=== PATIENT | female | born 1950 | race African-American/Black ===

== ENCOUNTER → 2017-06-22 | Outpatient (CLI) | payer MEDICAID ==
[~2017-06-22] MED LIST: ACET-2178; ASPI-986; BACL-141; DIVA250T4; GLIP10TA3; LIDOCAINE 1%/EPI 1:200,000 10 ML VIAL IJ ONE; LISI-604; MOM; RISP2; SODIUM BICARBONATE 4% (2.4MEQ) 5ML VIAL IV ONE; VALS160T2
== END | disposition home or self-care (01) ==
LOC: MAMMO 10:23
PROVIDERS: ATTEND Internal Medicine
DX: N63.10 Unspecified lump in the right breast, unspecified quadrant (principal)
CPT/HCPCS: G0204

== ENCOUNTER → 2017-07-18 | Day surgery (SDC) | payer MEDICAID ==
[~2017-07-18] MED LIST changes: -LIDOCAINE 1%/EPI 1:200,000 10 ML VIAL IJ ONE; -SODIUM BICARBONATE 4% (2.4MEQ) 5ML VIAL IV ONE
== END | disposition home or self-care (01) ==
LOC: RAD 09:31
PROVIDERS: ATTEND Specialist
DX: C50.411 Malignant neoplasm of upper-outer quadrant of right female breast (principal)
CPT/HCPCS: 19083; 88305; J3490

== ENCOUNTER → 2017-11-05 | Outpatient (CLI) | payer MEDICAID ==
[~2017-11-05] MED LIST changes: +REGADENOSON 0.4 MG/5 ML IV ONE
== END | disposition home or self-care (01) ==
LOC: NM 08:09
PROVIDERS: ATTEND Internal Medicine Cardiovascular Disease
DX: Z01.818 Encounter for other preprocedural examination (principal); I10 Essential (primary) hypertension; R94.31 Abnormal electrocardiogram [ECG] [EKG]
CPT/HCPCS: 78452; 93017; A9500; C1893; J2785

== ENCOUNTER 2018-02-06 13:56 | Inpatient (IN) | payer MEDICAID ==
[2018-02-06] VITALS (7 sets, daily range): BP systolic 120–158; BP diastolic 47–89
[~2018-02-06] VITALS: Ht 165.1 cm; Wt 75.3 kg
[~2018-02-06 13:56] MED LIST changes: -REGADENOSON 0.4 MG/5 ML IV ONE
[2018-02-06] MEDS ORDERED: SUCCINYLCHOLINE CHLORIDE 200MG/10ML VIAL IV ONE ×2 (14:30)
[2018-02-06] MEDS ORDERED: NORMAL SALINE 0.9% 10 ML SYR ONE (14:30)
[2018-02-06] MEDS ORDERED: SODIUM CHLORIDE 0.9% 1000ML BAG (SEPSIS BOLUS) IV ONE (14:30)
[2018-02-06] MEDS ORDERED: ETOMIDATE 2MG/ML 10ML VIAL IV ONE ×2 (14:30)
[2018-02-06] MEDS ORDERED: PROPOFOL 10MG/ML 100ML 100 ML IV ONE (14:30)
[2018-02-06 15:30] LABS: CLARITY URINE TURBID (CLEAR); COLOR URINE YELLOW (YELLOW); KETONES URINE TRACE (NEGATIVE); LEUKOCYTE ESTERASE URINE 3+ (NEGATIVE); NITRITE URINE NEGATIVE (NEGATIVE); OCCULT BLOOD URINE 1+ (NEGATIVE); PH URINE 7.5 (4.5-8.0); PROTEIN URINE 3+ (NEGATIVE); SPECIFIC GRAVITY URINE 1.017 (1.005-1.030)
[2018-02-06 15:46] LABS: BG BASE EXCESS -19.3 mmol/L (-2.0-2.0); BG CARBOXYHEMOGLOBIN 0.3 % (0.5-1.5); BG DEOXYHEMOGLOBIN 0.6 % (0.0-5.0); BG FRACTION INSPIRED OXYGEN 100; BG HCO3 ACT 7.8 mmol/L (22.0-26.0); BG METHEMOGLOBIN 0.3 % (0.0-1.5); BG OXYGEN SATURATION 99.4 % (92.0-98.5); BG OXYHEMOGLOBIN 98.8 % (94.0-97.0); BG PCO2 22.8 mmHg (35.0-45.0); BG PH 7.152 (7.350-7.450); BG PO2 473.8 mmHg (75.0-100.0); BG SAMPLE SITE RIGHT RADIAL; BG TIDAL VOLUME(mL) 600 mL; BG TOTAL HEMOGLOBIN 8.3 g/dL (12.0-18.0); BG VENT MODE VENT - A/C; BG VENT RATE 12 set
[2018-02-06 15:50] LABS: CHLORIDE 128 mEq/L (98-107)
[2018-02-06 15:51] LABS: INR 1.2; PARTIAL THROMBOPLASTIN TIME 33.2 sec (23.4-31.0); PROTHROMBIN TIME 12.8 sec (9.4-11.6)
[2018-02-06 15:52] LABS: HEMOGLOBIN. 8.7 g/dL (12.0-16.0); MEAN CORPUSCULAR HEMOGLOBIN 30.6 pg (28.0-32.0); MEAN CORPUSCULAR VOLUME 98.5 fL (81.0-99.0); MEAN PLATELET VOLUME 8.7 fl (7.4-10.4); PLATELET 185 x1000/uL (130-400); RED BLOOD CELL COUNT 2.84 mill/uL (4.2-5.4); RED CELL DISTRIBUTION WIDTH 19.8 % (11.6-14.6)
[2018-02-06 15:54] LABS: AMMONIA 23 uMol/L (<32)
[2018-02-06 15:55] LABS: ETHANOL BLOOD < 10 mg/dL
[2018-02-06] MEDS ORDERED: FUROSEMIDE 100MG/10ML VIAL IV STA (15:58)
[2018-02-06 15:59] LABS: CANNABINOID URINE SCREEN NEGATIVE (NEGATIVE); METHADONE URINE SCREEN NEGATIVE (NEGATIVE); OPIATES URINE SCREEN NEGATIVE (NEGATIVE); PHENCYCLIDINE URINE SCREEN NEGATIVE (NEGATIVE)
[2018-02-06 16:00] LABS: *AMPHETAMINES SCREEN URINE NEGATIVE (NEGATIVE); *BARBITURATES SCREEN URINE NEGATIVE (NEGATIVE); *BENZODIAZEPINES SCREEN URINE NEGATIVE (NEGATIVE); *COCAINE SCREEN URINE NEGATIVE (NEGATIVE)
[2018-02-06] MEDS ORDERED: ALBUTEROL (0.083%) 2.5MG/3ML NEB HHN ONE (16:00)
[2018-02-06] MEDS ORDERED: CALCIUM GLUCONATE 100MG/ML 10ML VIAL IV ONE (16:00)
[2018-02-06] MEDS ORDERED: SODIUM POLYSTYRENE SULFONATE 15 G/60 ML BOT NG ONE (16:00)
[2018-02-06] MEDS ORDERED: SODIUM BICARBONATE 8.4% 1 MEQ/ML 50ML SYR IV ONE ×2 (16:00→19:00)
[2018-02-06] MEDS ORDERED: DEXTROSE 50% WATER 50ML SYRINGE IV ONE ×3 (16:00→22:25)
[2018-02-06] MEDS ORDERED: INSULIN REGULAR (HUMULIN R) 300UNITS/3ML IV ONE ×2 (16:00→19:00)
[2018-02-06 16:26] LABS: NUCLEATED RED BLOOD CELLS 18 /100 WBC; PLATELET ESTIMATE NORMAL
[2018-02-06] MEDS ORDERED: PIPERACILLIN/TAZ 3.375G PREMIX 50 ML IV ONE (16:45)
[2018-02-06] MEDS ORDERED: VANCOMYCIN 1 G PREMIX 200 ML IV SCH (16:45)
[2018-02-06] MEDS ORDERED: VALPROATE SODIUM 500 MG in SODIUM CHLORIDE 0.9% 100 ML IV SCH (17:00)
[2018-02-06] MEDS ORDERED: LEVOFLOXACIN 500MG PREMIX 100 ML IV SCH (17:30)
[2018-02-06] MEDS ORDERED: ENOXAPARIN 40MG/0.4ML SYR SUBCUT SCH (17:30)
[2018-02-06] MEDS ORDERED: ASPIRIN 300MG SUPP PR ONE (17:45)
[2018-02-06 20:50] LABS: PHOSPHORUS 7.7 mg/dL (2.5-4.9)
[2018-02-06] MEDS ORDERED: ONDANSETRON HCL 4MG/2ML VIAL IV PRN (21:43)
[2018-02-06] MEDS ORDERED: DEXT 5%/0.45% NACL 1000ML 1,000 ML IV SCH (21:43)
[2018-02-06] MEDS ORDERED: HYDROCODONE/ACETAMINOPHEN 5/325MG TABLET PO PRN (21:44)
[2018-02-06] MEDS ORDERED: MAGNESIUM/ALUMINUM HYDROXIDE/SIMETHICONE 30ML UDC PO PRN (21:44)
[2018-02-06] MEDS ORDERED: NA PHOS,M-B/NA PHOS,DI-BA ENEMA 118ML PR PRN (21:45)
[2018-02-06] MEDS ORDERED: CLONIDINE 0.1MG TABLET PO PRN (21:45)
[2018-02-06] MEDS ORDERED: LORAZEPAM 2MG/ML CPJ IV PRN (21:46)
[2018-02-06] MEDS ORDERED: IPRATROPIUM/ALBUTEROL 0.5-3(2.5)MG/3ML NEB INH PRN (21:49)
[2018-02-06] MEDS ORDERED: ENOXAPARIN 30MG/0.3ML SYR SUBCUT SCH (22:00)
[2018-02-06 22:27] LABS: BG BASE EXCESS -15.6 mmol/L (-2.0-2.0); BG CARBOXYHEMOGLOBIN 0.3 % (0.5-1.5); BG DEOXYHEMOGLOBIN 1.1 % (0.0-5.0); BG FRACTION INSPIRED OXYGEN 40; BG HCO3 ACT 9.5 mmol/L (22.0-26.0); BG METHEMOGLOBIN 0.3 % (0.0-1.5); BG OXYGEN SATURATION 98.9 % (92.0-98.5); BG OXYHEMOGLOBIN 98.3 % (94.0-97.0); BG PCO2 20.7 mmHg (35.0-45.0); BG PH 7.279 (7.350-7.450); BG PO2 176.1 mmHg (75.0-100.0); BG SAMPLE SITE LEFT RADIAL; BG TIDAL VOLUME(mL) 600 mL; BG TOTAL HEMOGLOBIN 8.4 g/dL (12.0-18.0); BG VENT MODE VENT - A/C; BG VENT RATE 12 set
[2018-02-06] MEDS ORDERED: SODIUM BICARBONATE 8.4% 1 MEQ/ML 50ML SYR IV NR (23:45)
[2018-02-06] MEDS ORDERED: MANNITOL 12.5G (25%) VIAL 50ML IV NR (23:59)
[2018-02-07] VITALS (91 sets, daily range): BP systolic 85–163; BP diastolic 39–106
[2018-02-07] MEDS ORDERED: LEVOFLOXACIN 500MG PREMIX 100 ML IV SCH
[2018-02-07 00:15] LABS: CREATINE KINASE MB FRACTION 19.8 ng/mL (0.5-3.6)
[2018-02-07] MEDS: IPRATROPIUM/ALBUTEROL 0.5-3(2.5)MG/3ML NEB HHN SCH ×6 (00:35→19:56)
[2018-02-07] MEDS ORDERED: MANNITOL 12.5G (25%) VIAL 50ML IV NR (01:00)
[2018-02-07] MEDS: DEXTROSE 5% WATER 1,000 ML IV SCH ×3 (01:14→22:16)
[2018-02-07] MEDS: PROPOFOL 10MG/ML 100ML 100 ML IV PRN ×2 (04:25→15:07)
[2018-02-07 07:14] LABS: CHLORIDE 114 mEq/L (98-107)
[2018-02-07 07:26] LABS: CREATINE KINASE 273 IU/L (26-192); CREATINE KINASE MB FRACTION 16.2 ng/mL (0.5-3.6); LDL CHOLESTEROL 92 mg/dL (5-100); T4 FREE 0.71 ng/dL (0.76-1.46)
[2018-02-07 07:29] LABS: PHOSPHORUS 3.5 mg/dL (2.5-4.9)
[2018-02-07 07:32] LABS: HDL CHOLESTEROL 36 mg/dL (40-59)
[2018-02-07 07:45] LABS: BG CARBOXYHEMOGLOBIN 0.1 % (0.5-1.5); BG DEOXYHEMOGLOBIN 3.5 % (0.0-5.0); BG HCO3 ACT 26.1 mmol/L (22.0-26.0); BG METHEMOGLOBIN 0.1 % (0.0-1.5); BG OXYGEN SATURATION 96.5 % (92.0-98.5); BG OXYHEMOGLOBIN 96.3 % (94.0-97.0); BG PCO2 33.7 mmHg (35.0-45.0); BG PH 7.507 (7.350-7.450); BG PO2 96.1 mmHg (75.0-100.0); BG SAMPLE SITE RIGHT RADIAL; BG TIDAL VOLUME(mL) 600 mL; BG TOTAL HEMOGLOBIN 7.9 g/dL (12.0-18.0); BG VENT MODE VENT - A/C; BG VENT RATE 12 set
[2018-02-07] MEDS: ASPIRIN 81MG EC TABLET PO SCH (09:10)
[2018-02-07] MEDS: ENOXAPARIN 30MG/0.3ML SYR SUBCUT SCH (09:10)
[2018-02-07] MEDS: MORPHINE SULFATE 4 MG/ML CPJ (NOT FOR IM USE) IV PRN ×2 (09:11→14:28)
[2018-02-07 10:46] LABS: BASOPHILS % 0.6 % (0.0-2.0); EOSINOPHILS % 0.1 % (0.0-5.0); LYMPHOCYTES % 13.4 % (20.0-50.0); MEAN CORPUSCULAR HEMOGLOBIN 30.7 pg (28.0-32.0); MEAN CORPUSCULAR VOLUME 90.7 fL (81.0-99.0); MEAN PLATELET VOLUME 8.9 fl (7.4-10.4); NEUTROPHILS % 81.9 % (40.0-76.0); PLATELET 143 x1000/uL (130-400); RED BLOOD CELL COUNT 2.29 mill/uL (4.2-5.4); RED CELL DISTRIBUTION WIDTH 18.4 % (11.6-14.6)
[2018-02-07 10:49] LABS: HEMATOCRIT. 20.8 % (36.0-48.0)
[2018-02-07] MEDS: DIPHENHYDRAMINE 50MG/ML VIAL IV PRN (15:06)
[2018-02-07] MEDS ORDERED: CEFTAZIDIME PENTAHYDRATE 1 G in DEXTROSE 5% WATER 50 ML IV SCH ×2 (16:00→18:00)
[2018-02-07 16:08] LABS: CREATINE KINASE MB FRACTION 10.9 ng/mL (0.5-3.6)
[2018-02-07 19:03] LABS: MEAN CORPUSCULAR HEMOGLOBIN 30.5 pg (28.0-32.0); MEAN CORPUSCULAR VOLUME 91.2 fL (81.0-99.0); PLATELET 133 x1000/uL (130-400); RED BLOOD CELL COUNT 2.16 mill/uL (4.2-5.4); RED CELL DISTRIBUTION WIDTH 18.6 % (11.6-14.6)
[2018-02-07 19:10] LABS: HEMATOCRIT 19.7 % (36.0-48.0); HEMOGLOBIN 6.6 g/dL (12.0-16.0)
[2018-02-07] MEDS: PHENYTOIN SODIUM 100MG/2ML VIAL IV SCH (21:34)
[2018-02-08] VITALS (49 sets, daily range): BP systolic 85–122; BP diastolic 43–77
[2018-02-08] MEDS: IPRATROPIUM/ALBUTEROL 0.5-3(2.5)MG/3ML NEB HHN SCH ×6 (00:03→20:17)
[2018-02-08 05:29] LABS: BASOPHILS % 1.2 % (0.0-2.0); EOSINOPHILS % 0.7 % (0.0-5.0); HEMATOCRIT. 28.4 % (36.0-48.0); HEMOGLOBIN. 9.5 g/dL (12.0-16.0); LYMPHOCYTES % 12.4 % (20.0-50.0); MEAN CORPUSCULAR HEMOGLOBIN 31.2 pg (28.0-32.0); MEAN CORPUSCULAR VOLUME 92.8 fL (81.0-99.0); MEAN PLATELET VOLUME 9.1 fl (7.4-10.4); MONOCYTES % 3.1 % (2.0-8.0); NEUTROPHILS % 82.6 % (40.0-76.0); PLATELET 128 x1000/uL (130-400); RED BLOOD CELL COUNT 3.06 mill/uL (4.2-5.4); RED CELL DISTRIBUTION WIDTH 18.3 % (11.6-14.6)
[2018-02-08 06:48] LABS: BG BASE EXCESS -4.4 mmol/L (-2.0-2.0); BG CARBOXYHEMOGLOBIN 0.4 % (0.5-1.5); BG DEOXYHEMOGLOBIN 1.1 % (0.0-5.0); BG FRACTION INSPIRED OXYGEN 40; BG HCO3 ACT 18.6 mmol/L (22.0-26.0); BG METHEMOGLOBIN 0.4 % (0.0-1.5); BG OXYGEN SATURATION 98.9 % (92.0-98.5); BG OXYHEMOGLOBIN 98.1 % (94.0-97.0); BG PH 7.472 (7.350-7.450); BG PO2 170.1 mmHg (75.0-100.0); BG PRESSURE SUPPORT 10; BG SAMPLE SITE RIGHT BRACHIAL; BG TOTAL HEMOGLOBIN 7.1 g/dL (12.0-18.0); BG VENT MODE VENT - CPAP
[2018-02-08] MEDS: PHENYTOIN SODIUM 100MG/2ML VIAL IV SCH ×3 (06:59→22:16)
[2018-02-08] MEDS: ENOXAPARIN 30MG/0.3ML SYR SUBCUT SCH (08:41)
[2018-02-08] MEDS: ASPIRIN 81MG EC TABLET PO SCH (08:41)
[2018-02-08 08:52] LABS: BG CARBOXYHEMOGLOBIN 0.6 % (0.5-1.5); BG FRACTION INSPIRED OXYGEN 40; BG HCO3 ACT 22.7 mmol/L (22.0-26.0); BG METHEMOGLOBIN 0.4 % (0.0-1.5); BG PCO2 33.8 mmHg (35.0-45.0); BG PH 7.445 (7.350-7.450); BG PO2 172.5 mmHg (75.0-100.0); BG PRESSURE SUPPORT 10; BG SAMPLE SITE RIGHT BRACHIAL; BG TOTAL HEMOGLOBIN 9.2 g/dL (12.0-18.0); BG VENT MODE VENT - CPAP
[2018-02-08] MEDS ORDERED: POTASSIUM CHLORIDE INJ 40 MEQ in DEXT 5% WATER 250 ML IV ONE (09:15)
[2018-02-08] MEDS ORDERED: KCL 20MEQ/100ML PREMIX 100 ML IV SCH ×2 (10:30→12:30)
[2018-02-08 11:28] LABS: BG BASE EXCESS 0.3 mmol/L (-2.0-2.0); BG CARBOXYHEMOGLOBIN 0.3 % (0.5-1.5); BG DEOXYHEMOGLOBIN 1.2 % (0.0-5.0); BG FRACTION INSPIRED OXYGEN 40; BG HCO3 ACT 24.1 mmol/L (22.0-26.0); BG METHEMOGLOBIN 0.2 % (0.0-1.5); BG OXYGEN SATURATION 98.8 % (92.0-98.5); BG OXYHEMOGLOBIN 98.3 % (94.0-97.0); BG PCO2 35.5 mmHg (35.0-45.0); BG PO2 163.5 mmHg (75.0-100.0); BG PRESSURE SUPPORT 10; BG SAMPLE SITE RIGHT RADIAL; BG VENT MODE VENT - CPAP
[2018-02-08] MEDS: DEXTROSE 5% WATER 1,000 ML IV SCH (15:34)
[2018-02-08] MEDS: AMPICILLIN 1,000 MG in SODIUM CHLORIDE 0.9% 50 ML IV SCH (21:30)
[2018-02-09] VITALS (31 sets, daily range): BP systolic 100–144; BP diastolic 48–86
[2018-02-09] MEDS ORDERED: LEVOFLOXACIN 250MG PREMIX 50 ML IV SCH
[2018-02-09] MEDS: IPRATROPIUM/ALBUTEROL 0.5-3(2.5)MG/3ML NEB HHN SCH ×6 (00:11→20:17)
[2018-02-09] MEDS: DEXTROSE 5% WATER 1,000 ML IV SCH ×2 (00:37→13:05)
[2018-02-09 05:42] LABS: EOSINOPHILS % 0.8 % (0.0-5.0); HEMATOCRIT. 24.6 % (36.0-48.0); HEMOGLOBIN. 8.4 g/dL (12.0-16.0); LYMPHOCYTES % 12.8 % (20.0-50.0); MEAN CORPUSCULAR HEMOGLOBIN 31.6 pg (28.0-32.0); MEAN CORPUSCULAR VOLUME 92.8 fL (81.0-99.0); MEAN PLATELET VOLUME 9.7 fl (7.4-10.4); MONOCYTES % 4.2 % (2.0-8.0); NEUTROPHILS % 81.2 % (40.0-76.0); PLATELET 120 x1000/uL (130-400); RED BLOOD CELL COUNT 2.65 mill/uL (4.2-5.4); RED CELL DISTRIBUTION WIDTH 18.9 % (11.6-14.6)
[2018-02-09] MEDS: PHENYTOIN SODIUM 100MG/2ML VIAL IV SCH ×3 (06:13→21:01)
[2018-02-09 08:29] LABS: BG BASE EXCESS -2.6 mmol/L (-2.0-2.0); BG DEOXYHEMOGLOBIN 4.6 % (0.0-5.0); BG FRACTION INSPIRED OXYGEN 35; BG METHEMOGLOBIN 0.2 % (0.0-1.5); BG OXYGEN SATURATION 95.4 % (92.0-98.5); BG OXYHEMOGLOBIN 95.2 % (94.0-97.0); BG PCO2 37.2 mmHg (35.0-45.0); BG PO2 80.2 mmHg (75.0-100.0); BG PRESSURE SUPPORT 10; BG SAMPLE SITE RIGHT RADIAL; BG TOTAL HEMOGLOBIN 9.1 g/dL (12.0-18.0); BG VENT MODE VENT - CPAP
[2018-02-09] MEDS: ASPIRIN 81MG EC TABLET PO SCH (10:09)
[2018-02-09] MEDS: AMPICILLIN 1,000 MG in SODIUM CHLORIDE 0.9% 50 ML IV SCH ×2 (10:09→21:01)
[2018-02-09] MEDS: ENOXAPARIN 30MG/0.3ML SYR SUBCUT SCH (10:09)
[2018-02-09] MEDS ORDERED: FUROSEMIDE 40MG/4ML VIAL IVP SCH (11:30)
[2018-02-09] MEDS: METOCLOPRAMIDE HCL 10MG/2ML VIAL IV SCH (18:35)
[2018-02-09] MEDS ORDERED: MAGNESIUM 2 G PREMIX 50 ML IV NR (22:00)
[2018-02-09] MEDS ORDERED: CEFTAZIDIME PENTAHYDRATE 1 G in DEXTROSE 5% WATER 50 ML IV SCH (23:00)
[2018-02-10] VITALS (24 sets, daily range): BP systolic 115–156; BP diastolic 55–87
[2018-02-10] MEDS ORDERED: VANCOMYCIN 1 G PREMIX 200 ML IV NR
[2018-02-10] MEDS: METOCLOPRAMIDE HCL 10MG/2ML VIAL IV SCH ×5 (00:24→23:05)
[2018-02-10] MEDS: IPRATROPIUM/ALBUTEROL 0.5-3(2.5)MG/3ML NEB HHN SCH ×6 (00:33→20:22)
[2018-02-10 04:49] LABS: BASOPHILS % 0.4 % (0.0-2.0); EOSINOPHILS % 0.7 % (0.0-5.0); HEMATOCRIT. 26.6 % (36.0-48.0); LYMPHOCYTES % 9.6 % (20.0-50.0); MEAN CORPUSCULAR HEMOGLOBIN 31.3 pg (28.0-32.0); MEAN CORPUSCULAR VOLUME 91.9 fL (81.0-99.0); MEAN PLATELET VOLUME 9.6 fl (7.4-10.4); NEUTROPHILS % 83.3 % (40.0-76.0); PLATELET 147 x1000/uL (130-400); RED CELL DISTRIBUTION WIDTH 17.9 % (11.6-14.6)
[2018-02-10] MEDS: PHENYTOIN SODIUM 100MG/2ML VIAL IV SCH ×3 (06:02→23:01)
[2018-02-10] MEDS: DEXTROSE 5% WATER 1,000 ML IV SCH (06:34)
[2018-02-10] MEDS: ASPIRIN 81MG EC TABLET PO SCH (08:09)
[2018-02-10] MEDS: ENOXAPARIN 30MG/0.3ML SYR SUBCUT SCH (08:09)
[2018-02-10] MEDS: DOCUSATE SODIUM 100MG CAPSULE PO PRN ×2 (08:09→17:37)
[2018-02-10] MEDS: MORPHINE SULFATE 4 MG/ML CPJ (NOT FOR IM USE) IV PRN (09:46)
[2018-02-10] MEDS: DIPHENHYDRAMINE 50MG/ML VIAL IV PRN (11:14)
[2018-02-10] MEDS: AMPICILLIN 1,000 MG in SODIUM CHLORIDE 0.9% 50 ML IV SCH ×2 (13:47→23:01)
[2018-02-10] MEDS ORDERED: FUROSEMIDE 40MG/4ML VIAL IVP NR (17:15)
[2018-02-11] VITALS (25 sets, daily range): BP systolic 117–163; BP diastolic 60–94
[2018-02-11] MEDS: IPRATROPIUM/ALBUTEROL 0.5-3(2.5)MG/3ML NEB HHN SCH ×6 (00:23→20:23)
[2018-02-11 05:27] LABS: BASOPHILS % 0.7 % (0.0-2.0); EOSINOPHILS % 1.6 % (0.0-5.0); HEMATOCRIT. 25.6 % (36.0-48.0); HEMOGLOBIN. 8.6 g/dL (12.0-16.0); LYMPHOCYTES % 7.9 % (20.0-50.0); MEAN CORPUSCULAR HEMOGLOBIN 31.4 pg (28.0-32.0); MEAN CORPUSCULAR VOLUME 93.2 fL (81.0-99.0); MONOCYTES % 9.7 % (2.0-8.0); NEUTROPHILS % 80.1 % (40.0-76.0); PLATELET 191 x1000/uL (130-400); RED BLOOD CELL COUNT 2.75 mill/uL (4.2-5.4); RED CELL DISTRIBUTION WIDTH 17.9 % (11.6-14.6)
[2018-02-11 05:50] LABS: PHOSPHORUS 5.2 mg/dL (2.5-4.9)
[2018-02-11] MEDS: PHENYTOIN SODIUM 100MG/2ML VIAL IV SCH ×3 (06:08→21:49)
[2018-02-11] MEDS: METOCLOPRAMIDE HCL 10MG/2ML VIAL IV SCH ×3 (06:08→18:06)
[2018-02-11] MEDS: DEXTROSE 5% WATER 1,000 ML IV SCH (06:09)
[2018-02-11 07:39] LABS: BG BASE EXCESS -1.1 mmol/L (-2.0-2.0); BG CARBOXYHEMOGLOBIN 0.3 % (0.5-1.5); BG FRACTION INSPIRED OXYGEN 35; BG HCO3 ACT 23.1 mmol/L (22.0-26.0); BG METHEMOGLOBIN 0.1 % (0.0-1.5); BG OXYHEMOGLOBIN 97.6 % (94.0-97.0); BG PCO2 36.3 mmHg (35.0-45.0); BG PH 7.422 (7.350-7.450); BG PO2 116.1 mmHg (75.0-100.0); BG PRESSURE SUPPORT 10; BG SAMPLE SITE RIGHT RADIAL; BG TOTAL HEMOGLOBIN 8.8 g/dL (12.0-18.0); BG VENT MODE VENT - CPAP
[2018-02-11] MEDS: AMPICILLIN 1,000 MG in SODIUM CHLORIDE 0.9% 50 ML IV SCH ×2 (08:37→21:49)
[2018-02-11] MEDS: ASPIRIN 81MG EC TABLET PO SCH (08:37)
[2018-02-11] MEDS: ENOXAPARIN 30MG/0.3ML SYR SUBCUT SCH (08:38)
[2018-02-11] MEDS ORDERED: METHYLPREDNISOLONE SOD SUCC 125 MG/2 ML VIAL IV NR (09:16)
[2018-02-11] MEDS: GUAIFENESIN 200MG/10ML SUGAR FREE UDC PO PRN (09:17)
[2018-02-11] MEDS ORDERED: RACEPINEPHRINE 2.25% 0.5ML NEB VIAL HHN PRN (09:21)
[2018-02-11] MEDS: MORPHINE SULFATE 4 MG/ML CPJ (NOT FOR IM USE) IV PRN (10:02)
[2018-02-11] MEDS: RACEPINEPHRINE 2.25% 0.5ML NEB VIAL HHN SCH ×3 (12:11→20:42)
[2018-02-11 13:10] LABS: BG BASE EXCESS -1.3 mmol/L (-2.0-2.0); BG DEOXYHEMOGLOBIN 2.6 % (0.0-5.0); BG FRACTION INSPIRED OXYGEN 28; BG METHEMOGLOBIN 0.2 % (0.0-1.5); BG OXYGEN SATURATION 97.4 % (92.0-98.5); BG OXYHEMOGLOBIN 97.2 % (94.0-97.0); BG PCO2 36.8 mmHg (35.0-45.0); BG PH 7.413 (7.350-7.450); BG PO2 100.3 mmHg (75.0-100.0); BG SAMPLE SITE RIGHT RADIAL; BG TOTAL HEMOGLOBIN 9.8 g/dL (12.0-18.0); BG VENT MODE MASK - AEROSOL
[2018-02-11] MEDS: METHYLPREDNISOLONE SOD SUCC 40 MG/ML VIAL IV SCH ×2 (15:00→21:49)
[2018-02-11] MEDS ORDERED: METHYLPREDNISOLONE SOD SUCC 125 MG/2 ML VIAL IV SCH (15:00)
[2018-02-11 20:34] LABS: BG BASE EXCESS 0.1 mmol/L (-2.0-2.0); BG CARBOXYHEMOGLOBIN 0.9 % (0.5-1.5); BG DEOXYHEMOGLOBIN 2.7 % (0.0-5.0); BG FRACTION INSPIRED OXYGEN 28; BG HCO3 ACT 24.8 mmol/L (22.0-26.0); BG METHEMOGLOBIN 0.3 % (0.0-1.5); BG OXYGEN SATURATION 97.3 % (92.0-98.5); BG OXYHEMOGLOBIN 96.1 % (94.0-97.0); BG PCO2 40.4 mmHg (35.0-45.0); BG PH 7.406 (7.350-7.450); BG PO2 97.1 mmHg (75.0-100.0); BG SAMPLE SITE RIGHT RADIAL; BG TOTAL HEMOGLOBIN 13.8 g/dL (12.0-18.0); BG VENT MODE MASK - AEROSOL
[2018-02-12] VITALS (41 sets, daily range): BP systolic 109–166; BP diastolic 54–100
[2018-02-12] MEDS: RACEPINEPHRINE 2.25% 0.5ML NEB VIAL HHN SCH ×5 (01:20→17:20)
[2018-02-12] MEDS: IPRATROPIUM/ALBUTEROL 0.5-3(2.5)MG/3ML NEB HHN SCH ×6 (01:20→21:06)
[2018-02-12] MEDS: METOCLOPRAMIDE HCL 10MG/2ML VIAL IV SCH ×5 (02:00→23:53)
[2018-02-12] MEDS: METHYLPREDNISOLONE SOD SUCC 40 MG/ML VIAL IV SCH ×4 (02:00→21:29)
[2018-02-12] MEDS: DEXTROSE 5% WATER 1,000 ML IV SCH ×2 (02:01→21:29)
[2018-02-12] MEDS: PHENYTOIN SODIUM 100MG/2ML VIAL IV SCH ×3 (06:09→21:29)
[2018-02-12 08:30] LABS: BG BASE EXCESS -2.1 mmol/L (-2.0-2.0); BG CARBOXYHEMOGLOBIN 0.3 % (0.5-1.5); BG DEOXYHEMOGLOBIN 1.5 % (0.0-5.0); BG FRACTION INSPIRED OXYGEN 44; BG HCO3 ACT 22.6 mmol/L (22.0-26.0); BG METHEMOGLOBIN 0.9 % (0.0-1.5); BG OXYGEN SATURATION 98.5 % (92.0-98.5); BG OXYHEMOGLOBIN 97.3 % (94.0-97.0); BG PCO2 38.2 mmHg (35.0-45.0); BG PH 7.389 (7.350-7.450); BG PO2 153.2 mmHg (75.0-100.0); BG SAMPLE SITE RIGHT BRACHIAL; BG TOTAL HEMOGLOBIN 9.7 g/dL (12.0-18.0); BG VENT MODE NASAL CANNULA
[2018-02-12] MEDS: ASPIRIN 81MG EC TABLET PO SCH (09:14)
[2018-02-12] MEDS: ENOXAPARIN 30MG/0.3ML SYR SUBCUT SCH (09:14)
[2018-02-12] MEDS: GUAIFENESIN 200MG/10ML SUGAR FREE UDC PO PRN (09:17)
[2018-02-12] MEDS: AMPICILLIN 1,000 MG in SODIUM CHLORIDE 0.9% 50 ML IV SCH ×2 (09:18→21:29)
[2018-02-12] MEDS: ACETAMINOPHEN 325MG TABLET PO PRN (23:53)
[2018-02-13] VITALS (46 sets, daily range): BP systolic 105–163; BP diastolic 48–81
[2018-02-13] MEDS: IPRATROPIUM/ALBUTEROL 0.5-3(2.5)MG/3ML NEB HHN SCH ×6 (00:38→20:14)
[2018-02-13] MEDS: METHYLPREDNISOLONE SOD SUCC 40 MG/ML VIAL IV SCH ×2 (04:15→09:09)
[2018-02-13] MEDS: METOCLOPRAMIDE HCL 10MG/2ML VIAL IV SCH ×3 (05:41→17:50)
[2018-02-13] MEDS: PHENYTOIN SODIUM 100MG/2ML VIAL IV SCH ×3 (05:41→22:04)
[2018-02-13] MEDS: RACEPINEPHRINE 2.25% 0.5ML NEB VIAL HHN SCH ×3 (07:48→16:09)
[2018-02-13] MEDS: ENOXAPARIN 30MG/0.3ML SYR SUBCUT SCH (09:09)
[2018-02-13] MEDS: AMPICILLIN 1,000 MG in SODIUM CHLORIDE 0.9% 50 ML IV SCH ×2 (09:09→22:04)
[2018-02-13] MEDS: ASPIRIN 81MG EC TABLET PO SCH (09:09)
[2018-02-13 12:24] LABS: HEMATOCRIT. 22.7 % (36.0-48.0); HEMOGLOBIN. 7.6 g/dL (12.0-16.0); MEAN CORPUSCULAR HEMOGLOBIN 31.8 pg (28.0-32.0); MEAN CORPUSCULAR VOLUME 95.2 fL (81.0-99.0); MEAN PLATELET VOLUME 9.2 fl (7.4-10.4); PLATELET 294 x1000/uL (130-400); RED BLOOD CELL COUNT 2.38 mill/uL (4.2-5.4); RED CELL DISTRIBUTION WIDTH 18.2 % (11.6-14.6)
[2018-02-13] MEDS ORDERED: RACEPINEPHRINE 2.25% 0.5ML NEB VIAL ONE ×2 (12:57→16:08)
[2018-02-13 14:06] LABS: PLATELET ESTIMATE NORMAL
[2018-02-14] VITALS (22 sets, daily range): BP systolic 113–175; BP diastolic 54–76
[2018-02-14] MEDS: METOCLOPRAMIDE HCL 10MG/2ML VIAL IV SCH ×4 (00:33→17:47)
[2018-02-14] MEDS: DEXTROSE 5% WATER 1,000 ML IV SCH ×3 (00:34→21:53)
[2018-02-14] MEDS: IPRATROPIUM/ALBUTEROL 0.5-3(2.5)MG/3ML NEB HHN SCH ×5 (00:48→16:35)
[2018-02-14] MEDS: PHENYTOIN SODIUM 100MG/2ML VIAL IV SCH ×3 (06:25→21:39)
[2018-02-14 07:22] LABS: HEPATITIS B SURFACE ANTIGEN NEGATIVE
[2018-02-14] MEDS ORDERED: FENTANYL CITRATE/PF 50MCG/ML 2ML VIAL ONE (08:14)
[2018-02-14] MEDS ORDERED: LIDOCAINE HCL 1%/EPI 1:200,000 30 ML VIAL ONE (08:15)
[2018-02-14] MEDS ORDERED: LIDOCAINE HCL 1% 20ML VIAL (Pyxis) INJ ONE (08:15)
[2018-02-14] MEDS ORDERED: SODIUM BICARBONATE 4% (2.4MEQ) 5ML VIAL IV ONE (08:15)
[2018-02-14] MEDS ORDERED: HEPARIN 1000 UNITS/ML 10ML ONE (08:17)
[2018-02-14 08:18] LABS: BG BASE EXCESS 0.2 mmol/L (-2.0-2.0); BG CARBOXYHEMOGLOBIN 0.3 % (0.5-1.5); BG DEOXYHEMOGLOBIN 3.5 % (0.0-5.0); BG FRACTION INSPIRED OXYGEN 28; BG HCO3 ACT 24.1 mmol/L (22.0-26.0); BG METHEMOGLOBIN 0.3 % (0.0-1.5); BG OXYGEN SATURATION 96.5 % (92.0-98.5); BG OXYHEMOGLOBIN 95.9 % (94.0-97.0); BG PCO2 36.4 mmHg (35.0-45.0); BG PH 7.439 (7.350-7.450); BG PO2 81.4 mmHg (75.0-100.0); BG SAMPLE SITE RIGHT RADIAL; BG TOTAL HEMOGLOBIN 10.9 g/dL (12.0-18.0); BG VENT MODE NASAL CANNULA
[2018-02-14] MEDS: ASPIRIN 81MG EC TABLET PO SCH (09:00)
[2018-02-14] MEDS: ENOXAPARIN 30MG/0.3ML SYR SUBCUT SCH (09:00)
[2018-02-14] MEDS ORDERED: FENTANYL CITRATE/PF 50MCG/ML 2ML VIAL IV ONE (09:15)
[2018-02-14 12:03] LABS: BASOPHILS % 0.5 % (0.0-2.0); EOSINOPHILS % 4.8 % (0.0-5.0); HEMATOCRIT. 34.8 % (36.0-48.0); HEMOGLOBIN. 11.5 g/dL (12.0-16.0); LYMPHOCYTES % 11.2 % (20.0-50.0); MEAN CORPUSCULAR HEMOGLOBIN 29.9 pg (28.0-32.0); MEAN CORPUSCULAR VOLUME 90.9 fL (81.0-99.0); MEAN PLATELET VOLUME 8.4 fl (7.4-10.4); MONOCYTES % 9.5 % (2.0-8.0); PLATELET 362 x1000/uL (130-400); RED BLOOD CELL COUNT 3.83 mill/uL (4.2-5.4); RED CELL DISTRIBUTION WIDTH 17.5 % (11.6-14.6)
[2018-02-14] MEDS: PANTOPRAZOLE SODIUM 40 MG/VIAL IV SCH (21:38)
[2018-02-14] MEDS: MICONAZOLE NITRATE 2% OINT 71GM TOP SCH (21:38)
[2018-02-15] VITALS: BP 107/67
[2018-02-15] MEDS: METOCLOPRAMIDE HCL 10MG/2ML VIAL IV SCH ×5 (00:34→23:17)
[2018-02-15] MEDS: PHENYTOIN SODIUM 100MG/2ML VIAL IV SCH ×3 (06:22→21:23)
[2018-02-15 07:39] LABS: CHLORIDE 107 mEq/L (98-107)
[2018-02-15 08:00] VITALS: BP 100/51
[2018-02-15] MEDS: MICONAZOLE NITRATE 2% OINT 71GM TOP SCH ×2 (08:39→20:36)
[2018-02-15] MEDS: PANTOPRAZOLE SODIUM 40 MG/VIAL IV SCH ×2 (08:39→20:36)
[2018-02-15 08:42] LABS: BASOPHILS % 0.5 % (0.0-2.0); EOSINOPHILS % 3.7 % (0.0-5.0); HEMATOCRIT. 34.8 % (36.0-48.0); HEMOGLOBIN. 11.3 g/dL (12.0-16.0); LYMPHOCYTES % 13.9 % (20.0-50.0); MEAN CORPUSCULAR HEMOGLOBIN 30.7 pg (28.0-32.0); MEAN CORPUSCULAR VOLUME 94.6 fL (81.0-99.0); MEAN PLATELET VOLUME 8.9 fl (7.4-10.4); MONOCYTES % 9.1 % (2.0-8.0); NEUTROPHILS % 72.8 % (40.0-76.0); PLATELET 290 x1000/uL (130-400); RED BLOOD CELL COUNT 3.68 mill/uL (4.2-5.4); RED CELL DISTRIBUTION WIDTH 18.5 % (11.6-14.6)
[2018-02-15 12:00] VITALS: BP 91/48
[2018-02-15] MEDS ORDERED: CEFAZOLIN 1000MG PREMIX 50 ML IV SCH (12:00)
[2018-02-15 13:40] LABS: INR 1.3; PARTIAL THROMBOPLASTIN TIME 37.1 sec (23.4-31.0); PROTHROMBIN TIME 13.9 sec (9.4-11.6)
[2018-02-15] MEDS ORDERED: STERILE WATER FOR INJECTION 10ML VIAL ONE (14:06)
[2018-02-15 14:31] VITALS: BP 107/56
[2018-02-15] MEDS ORDERED: MIDAZOLAM HCL 5 MG/5 ML VIAL IV PRN (14:55)
[2018-02-15] MEDS ORDERED: FENTANYL CITRATE/PF 50MCG/ML 2ML VIAL IV PRN (14:56)
[2018-02-15] MEDS ORDERED: MIDAZOLAM HCL 5 MG/5 ML VIAL ONE (15:00)
[2018-02-15] MEDS ORDERED: FENTANYL CITRATE/PF 50MCG/ML 2ML VIAL ONE (15:01)
[2018-02-15] MEDS: IPRATROPIUM/ALBUTEROL 0.5-3(2.5)MG/3ML NEB INH SCH ×2 (15:55→21:09)
[2018-02-15 17:24] VITALS: BP 100/55
[2018-02-15 20:00] VITALS: BP 94/53
[2018-02-15] MEDS: ACETAMINOPHEN 650MG SUPP PR PRN (20:24)
[2018-02-15] MEDS: DEXT 5%/0.9% NACL 1,000 ML IV SCH (20:24)
[2018-02-15] MEDS ORDERED: LEVOFLOXACIN 500MG PREMIX 100 ML IV SCH (22:00)
[2018-02-16] VITALS: BP 111/51
[2018-02-16] MEDS: DIPHENHYDRAMINE 50MG/ML VIAL IV PRN ×2 (00:45→22:04)
[2018-02-16] MEDS: ACETAMINOPHEN 650MG SUPP PR PRN (03:56)
[2018-02-16 04:00] VITALS: BP 115/58
[2018-02-16 06:04] LABS: BASOPHILS % 0.4 % (0.0-2.0); EOSINOPHILS % 3.9 % (0.0-5.0); LYMPHOCYTES % 8.6 % (20.0-50.0); MEAN CORPUSCULAR HEMOGLOBIN 31.2 pg (28.0-32.0); MEAN CORPUSCULAR VOLUME 93.6 fL (81.0-99.0); MEAN PLATELET VOLUME 8.1 fl (7.4-10.4); NEUTROPHILS % 82.1 % (40.0-76.0); PLATELET 300 x1000/uL (130-400); RED BLOOD CELL COUNT 3.53 mill/uL (4.2-5.4); RED CELL DISTRIBUTION WIDTH 18.4 % (11.6-14.6)
[2018-02-16] MEDS: PHENYTOIN SODIUM 100MG/2ML VIAL IV SCH ×3 (06:04→22:14)
[2018-02-16] MEDS: METOCLOPRAMIDE HCL 10MG/2ML VIAL IV SCH ×3 (06:04→18:09)
[2018-02-16 08:00] VITALS: BP 117/59
[2018-02-16] MEDS: MICONAZOLE NITRATE 2% OINT 71GM TOP SCH ×2 (08:26→21:48)
[2018-02-16 08:34] LABS: BG CARBOXYHEMOGLOBIN 0.6 % (0.5-1.5); BG DEOXYHEMOGLOBIN 2.3 % (0.0-5.0); BG FRACTION INSPIRED OXYGEN 28; BG HCO3 ACT 22.1 mmol/L (22.0-26.0); BG METHEMOGLOBIN 0.4 % (0.0-1.5); BG OXYGEN SATURATION 97.7 % (92.0-98.5); BG OXYHEMOGLOBIN 96.7 % (94.0-97.0); BG PCO2 31.7 mmHg (35.0-45.0); BG PH 7.462 (7.350-7.450); BG PO2 97.9 mmHg (75.0-100.0); BG SAMPLE SITE RIGHT BRACHIAL; BG TOTAL HEMOGLOBIN 11.2 g/dL (12.0-18.0); BG VENT MODE NASAL CANNULA
[2018-02-16] MEDS: DEXT 5%/0.9% NACL 1,000 ML IV SCH ×2 (08:34→21:23)
[2018-02-16] MEDS: IPRATROPIUM/ALBUTEROL 0.5-3(2.5)MG/3ML NEB INH SCH ×4 (08:46→20:34)
[2018-02-16] MEDS ORDERED: POTASSIUM CHLORIDE 20MEQ TABLET SR PO NR (09:30)
[2018-02-16 12:00] VITALS: BP 94/49
[2018-02-16] MEDS: ACETAMINOPHEN 325MG TABLET PO PRN (13:27)
[2018-02-16] MEDS: ENOXAPARIN 30MG/0.3ML SYR SUBCUT SCH (15:49)
[2018-02-16 16:00] VITALS: BP 102/51
[2018-02-16 20:00] VITALS: BP 104/51
[2018-02-17] VITALS: BP 112/60
[2018-02-17 04:00] VITALS: BP 117/59
[2018-02-17] MEDS: METOCLOPRAMIDE HCL 10MG/2ML VIAL IV SCH ×4 (06:43→19:08)
[2018-02-17] MEDS: PHENYTOIN SODIUM 100MG/2ML VIAL IV SCH ×3 (06:43→21:57)
[2018-02-17 07:24] LABS: BASOPHILS % 0.2 % (0.0-2.0); EOSINOPHILS % 3.4 % (0.0-5.0); HEMATOCRIT. 33.4 % (36.0-48.0); LYMPHOCYTES % 16.1 % (20.0-50.0); MEAN CORPUSCULAR HEMOGLOBIN 30.5 pg (28.0-32.0); MEAN CORPUSCULAR VOLUME 92.6 fL (81.0-99.0); MEAN PLATELET VOLUME 8.3 fl (7.4-10.4); NEUTROPHILS % 74.3 % (40.0-76.0); PLATELET 258 x1000/uL (130-400); RED BLOOD CELL COUNT 3.61 mill/uL (4.2-5.4); RED CELL DISTRIBUTION WIDTH 17.9 % (11.6-14.6)
[2018-02-17 08:00] VITALS: BP 101/41
[2018-02-17] MEDS: ENOXAPARIN 30MG/0.3ML SYR SUBCUT SCH (09:02)
[2018-02-17] MEDS: MICONAZOLE NITRATE 2% OINT 71GM TOP SCH ×2 (09:03→21:00)
[2018-02-17] MEDS: DEXT 5%/0.9% NACL 1,000 ML IV SCH (12:27)
[2018-02-17] MEDS: IPRATROPIUM/ALBUTEROL 0.5-3(2.5)MG/3ML NEB INH SCH ×3 (12:55→21:26)
[2018-02-17 16:00] VITALS: BP_SYST 101; BP_SYST 127; BP_DIAS 51; BP_DIAS 63
[2018-02-17] MEDS ORDERED: ACETAMINOPHEN 650MG/20.3ML UDC PO PRN (19:00)
[2018-02-17] MEDS: ACETAMINOPHEN 325MG TABLET PO PRN (19:11)
[2018-02-17 20:00] VITALS: BP 141/32
[2018-02-17] MEDS: LEVOFLOXACIN 250MG PREMIX 50 ML IV SCH (21:57)
[2018-02-17] MEDS: DIPHENHYDRAMINE 50MG/ML VIAL IV PRN (21:57)
[2018-02-18 00:21] VITALS: BP 107/54
[2018-02-18] MEDS: METOCLOPRAMIDE HCL 10MG/2ML VIAL IV SCH ×4 (00:48→18:00)
[2018-02-18] MEDS: DEXT 5%/0.9% NACL 1,000 ML IV SCH ×2 (00:48→14:55)
[2018-02-18 04:00] VITALS: BP 90/49
[2018-02-18] MEDS: PHENYTOIN SODIUM 100MG/2ML VIAL IV SCH ×3 (06:31→21:28)
[2018-02-18 08:00] VITALS: BP 118/68
[2018-02-18] MEDS: IPRATROPIUM/ALBUTEROL 0.5-3(2.5)MG/3ML NEB INH SCH ×4 (08:12→21:19)
[2018-02-18] MEDS: ENOXAPARIN 30MG/0.3ML SYR SUBCUT SCH (09:30)
[2018-02-18] MEDS: MICONAZOLE NITRATE 2% OINT 71GM TOP SCH ×2 (09:30→21:35)
[2018-02-18 12:00] VITALS: BP 101/49
[2018-02-18 16:00] VITALS: BP 146/52
[2018-02-18 20:00] VITALS: BP 101/52
[2018-02-19] VITALS: BP 93/51
[2018-02-19] MEDS: METOCLOPRAMIDE HCL 10MG/2ML VIAL IV SCH ×4 (00:05→18:08)
[2018-02-19 04:00] VITALS: BP 97/56
[2018-02-19] MEDS: DEXT 5%/0.9% NACL 1,000 ML IV SCH ×2 (04:12→18:08)
[2018-02-19] MEDS: PHENYTOIN SODIUM 100MG/2ML VIAL IV SCH ×3 (05:25→21:08)
[2018-02-19] MEDS: IPRATROPIUM/ALBUTEROL 0.5-3(2.5)MG/3ML NEB INH SCH ×4 (07:18→20:54)
[2018-02-19 08:00] VITALS: BP 100/53
[2018-02-19 12:00] VITALS: BP 123/40
[2018-02-19] MEDS: MICONAZOLE NITRATE 2% OINT 71GM TOP SCH ×2 (13:20→21:08)
[2018-02-19] MEDS: ENOXAPARIN 30MG/0.3ML SYR SUBCUT SCH (13:23)
[2018-02-19 16:00] VITALS: BP 113/43
[2018-02-19 20:00] VITALS: BP 120/53
[2018-02-19] MEDS: LEVOFLOXACIN 250MG PREMIX 50 ML IV SCH (21:08)
[2018-02-20] VITALS: BP 122/80
[2018-02-20 00:45] LABS: BASOPHILS % 0.5 % (0.0-2.0); EOSINOPHILS % 3.1 % (0.0-5.0); HEMOGLOBIN. 8.7 g/dL (12.0-16.0); LYMPHOCYTES % 15.3 % (20.0-50.0); MEAN CORPUSCULAR HEMOGLOBIN 30.8 pg (28.0-32.0); MEAN CORPUSCULAR VOLUME 92.5 fL (81.0-99.0); MEAN PLATELET VOLUME 8.6 fl (7.4-10.4); MONOCYTES % 7.7 % (2.0-8.0); NEUTROPHILS % 73.4 % (40.0-76.0); PLATELET 150 x1000/uL (130-400); RED BLOOD CELL COUNT 2.81 mill/uL (4.2-5.4); RED CELL DISTRIBUTION WIDTH 17.8 % (11.6-14.6)
[2018-02-20 04:00] VITALS: BP 129/80
[2018-02-20] MEDS: PHENYTOIN SODIUM 100MG/2ML VIAL IV SCH (05:04)
[2018-02-20] MEDS: METOCLOPRAMIDE HCL 10MG/2ML VIAL IV SCH ×2 (05:11)
[2018-02-20] MEDS: IPRATROPIUM/ALBUTEROL 0.5-3(2.5)MG/3ML NEB INH SCH ×2 (07:39→11:42)
[2018-02-20 08:00] VITALS: BP 134/52
[2018-02-20 10:24] LABS: BG BASE EXCESS 0.7 mmol/L (-2.0-2.0); BG CARBOXYHEMOGLOBIN 0.3 % (0.5-1.5); BG DEOXYHEMOGLOBIN 9.5 % (0.0-5.0); BG FRACTION INSPIRED OXYGEN 21; BG METHEMOGLOBIN 0.3 % (0.0-1.5); BG OXYGEN SATURATION 90.4 % (92.0-98.5); BG OXYHEMOGLOBIN 89.9 % (94.0-97.0); BG PCO2 38.5 mmHg (35.0-45.0); BG PO2 53.2 mmHg (75.0-100.0); BG SAMPLE SITE RIGHT BRACHIAL; BG TOTAL HEMOGLOBIN 9.5 g/dL (12.0-18.0); BG VENT MODE ROOM AIR
[2018-02-20] MEDS: ENOXAPARIN 30MG/0.3ML SYR SUBCUT SCH (10:24)
[2018-02-20 10:52] VITALS: BP 134/90
[2018-02-20 12:19] VITALS: BP 137/50
== END 2018-02-20 14:35 | DRG 720 ==
LOC: ER 14:02 → CVICU 17:22 → EDBEDREQSVC 17:34 → EDBEDREQTM 17:34 → ENRESERV 17:39 → CVICU 02-12 11:40 → 7WST 02-14 02:48
PROVIDERS: ADMIT Internal Medicine; ATTEND Internal Medicine
PROC: 5A1955Z Respiratory Ventilation, Greater than 96 Consecutive Hours (ICD-10-PCS; principal; 2018-02-06)
PROC: 0BH17EZ Insertion of Endotracheal Airway into Trachea, Via Natural or Artificial Opening (ICD-10-PCS; 2018-02-06)
PROC: 5A1D70Z Performance of Urinary Filtration, Intermittent, Less than 6 Hours Per Day (ICD-10-PCS; 2018-02-06)
PROC: 06HY33Z Insertion of Infusion Device into Lower Vein, Percutaneous Approach (ICD-10-PCS; 2018-02-06)
PROC: 30233N1 Transfusion of Nonautologous Red Blood Cells into Peripheral Vein, Percutaneous Approach (ICD-10-PCS; 2018-02-08)
PROC: 5A1D70Z Performance of Urinary Filtration, Intermittent, Less than 6 Hours Per Day (ICD-10-PCS; 2018-02-11)
PROC: 4A00X4Z Measurement of Central Nervous Electrical Activity, External Approach (ICD-10-PCS; 2018-02-12)
PROC: 5A1D70Z Performance of Urinary Filtration, Intermittent, Less than 6 Hours Per Day (ICD-10-PCS; 2018-02-13)
PROC: 02HV33Z Insertion of Infusion Device into Superior Vena Cava, Percutaneous Approach (ICD-10-PCS; 2018-02-14)
PROC: B5181ZA Fluoroscopy of Superior Vena Cava using Low Osmolar Contrast, Guidance (ICD-10-PCS; 2018-02-14)
PROC: B548ZZA Ultrasonography of Superior Vena Cava, Guidance (ICD-10-PCS; 2018-02-14)
PROC: 0DH63UZ Insertion of Feeding Device into Stomach, Percutaneous Approach (ICD-10-PCS; 2018-02-15)
PROC: 5A1D70Z Performance of Urinary Filtration, Intermittent, Less than 6 Hours Per Day (ICD-10-PCS; 2018-02-17)
PROC: 5A1D70Z Performance of Urinary Filtration, Intermittent, Less than 6 Hours Per Day (ICD-10-PCS; 2018-02-19)
DX: A41.9 Sepsis, unspecified organism (principal); J96.00 Acute respiratory failure, unspecified whether with hypoxia or hypercapnia; I21.4 Non-ST elevation (NSTEMI) myocardial infarction; N17.0 Acute kidney failure with tubular necrosis; R57.9 Shock, unspecified; E43 Unspecified severe protein-calorie malnutrition; G92 Toxic encephalopathy; R13.12 Dysphagia, oropharyngeal phase; D69.6 Thrombocytopenia, unspecified; I13.2 Hypertensive heart and chronic kidney disease with heart failure and with stage 5 chronic kidney disease, or end stage renal disease; E87.0 Hyperosmolality and hypernatremia; E87.2 Acidosis; G93.89 Other specified disorders of brain; J38.4 Edema of larynx; H05.20 Unspecified exophthalmos; C50.911 Malignant neoplasm of unspecified site of right female breast; E87.5 Hyperkalemia; E78.5 Hyperlipidemia, unspecified; I50.32 Chronic diastolic (congestive) heart failure; E11.22 Type 2 diabetes mellitus with diabetic chronic kidney disease; I13.0 Hypertensive heart and chronic kidney disease with heart failure and stage 1 through stage 4 chronic kidney disease, or unspecified chronic kidney disease; N39.0 Urinary tract infection, site not specified; B96.4 Proteus (mirabilis) (morganii) as the cause of diseases classified elsewhere; B96.89 Other specified bacterial agents as the cause of diseases classified elsewhere; D57.3 Sickle-cell trait; E87.6 Hypokalemia; F03.90 Unspecified dementia, unspecified severity, without behavioral disturbance, psychotic disturbance, mood disturbance, and anxiety; F20.9 Schizophrenia, unspecified; G40.909 Epilepsy, unspecified, not intractable, without status epilepticus; H40.9 Unspecified glaucoma; E83.51 Hypocalcemia; N18.5 Chronic kidney disease, stage 5; K29.70 Gastritis, unspecified, without bleeding; M19.90 Unspecified osteoarthritis, unspecified site; R62.7 Adult failure to thrive; Z16.23 Resistance to quinolones and fluoroquinolones; Z79.4 Long term (current) use of insulin; Z79.82 Long term (current) use of aspirin; Z79.899 Other long term (current) drug therapy; Z86.73 Personal history of transient ischemic attack (TIA), and cerebral infarction without residual deficits; Z90.11 Acquired absence of right breast and nipple; Z92.21 Personal history of antineoplastic chemotherapy; Z99.2 Dependence on renal dialysis; Z88.8 Allergy status to other drugs, medicaments and biological substances; Z68.27 Body mass index [BMI] 27.0-27.9, adult
CPT/HCPCS: 31500; 36415; 36558; 36600; 51702; 70450; 71045; 76937; 77001; 80048; 80053; 80061; 80165; 80185; 80305; 81003; 82010; 82140; 82330; 82375; 82550; 82553; 82570; 82575; 82805; 82962; 83605; 83735; 83880; 83970; 84100; 84300; 84439; 84443; 84484; 85018; 85025; 85027; 85610; 85730; 86705; 86706; 86803; 86850; 86870; 86900; 86920; 87040; 87070; 87077; 87086; 87186; 87340; 87493; 92610; 93005; 93306; 94002; 94003; 94640; 96365; 96366; 96367; 96368; 96375; 99291; A4216; A6261; C1750; C1769; C1893; C9113; G0482; J0290; J0330; J0610; J0690; J0713; J1165; J1200; J1642; J1644; J1650; J1815; J1940; J1956; J2060; J2150; J2250; J2270; J2543; J2704; J2765; J2920; J2930; J3010; J3370; J3475; J3480; J3490; J7030; J7040; J7042; J7050; J7060; J7070; J7620; P9016; A4315

== ENCOUNTER 2018-02-21 19:59 | Inpatient (IN) | payer OTHER, MEDICAID ==
[~2018-02-21] VITALS: Ht 172.7 cm; Wt 67.1 kg
[2018-02-21 21:25] LABS: HEMATOCRIT. 31.7 % (36.0-48.0); HEMOGLOBIN. 10.5 g/dL (12.0-16.0); MEAN CORPUSCULAR HEMOGLOBIN 30.4 pg (28.0-32.0); MEAN PLATELET VOLUME 9.3 fl (7.4-10.4); PLATELET 221 x1000/uL (130-400); RED BLOOD CELL COUNT 3.44 mill/uL (4.2-5.4); RED CELL DISTRIBUTION WIDTH 18.2 % (11.6-14.6)
[2018-02-21 21:29] LABS: CHLORIDE 114 mEq/L (98-107); INR 1.2
[2018-02-21 21:45] LABS: PLATELET ESTIMATE NORMAL
[2018-02-22] MEDS ORDERED: IPRATROPIUM/ALBUTEROL 0.5-3(2.5)MG/3ML NEB INH PRN
[2018-02-22] MEDS ORDERED: CLONIDINE 0.1MG TABLET PO PRN
[2018-02-22] MEDS ORDERED: ONDANSETRON HCL 4MG/2ML VIAL IV PRN
[2018-02-22] MEDS ORDERED: ACETAMINOPHEN 325MG TABLET PO PRN
[2018-02-22] MEDS ORDERED: DOCUSATE SODIUM 100MG CAPSULE PO PRN
[2018-02-22] MEDS ORDERED: HYDROCODONE/ACETAMINOPHEN 5/325MG TABLET PO PRN
[2018-02-22 02:30] VITALS: BP 142/68
[2018-02-22 04:00] VITALS: BP 129/69
[2018-02-22] MEDS: INSULIN LISPRO 100 UNITS/ML SUBCUT SCH ×4 (08:10→21:00)
[2018-02-22] MEDS ORDERED: DOCUSATE SODIUM 100MG CAPSULE GT PRN (08:30)
[2018-02-22] MEDS: DEXTROSE 50% WATER 50ML SYRINGE IV PRN ×2 (08:36→12:42)
[2018-02-22] MEDS ORDERED: MULTIVITAMINS,THER W-MINERALS TABLET PO SCH (09:00)
[2018-02-22] MEDS ORDERED: FOLIC ACID 1MG TABLET PO SCH (09:00)
[2018-02-22 09:01] VITALS: BP 136/56
[2018-02-22] MEDS: MULTIVITAMINS,THER W-MINERALS TABLET GT SCH (09:19)
[2018-02-22] MEDS: FOLIC ACID 1MG TABLET GT SCH (09:19)
[2018-02-22] MEDS ORDERED: ACETAMINOPHEN 325MG TABLET GT PRN (12:00)
[2018-02-22] MEDS ORDERED: HYDROCODONE/ACETAMINOPHEN 5/325MG TABLET GT PRN (12:00)
[2018-02-22] MEDS: SODIUM CHLORIDE 0.9% 1,000 ML IV SCH (12:48)
[2018-02-22] MEDS: BLOOD SUGAR DIAGNOSTIC STRIP TEST SCH ×3 (12:48→21:13)
[2018-02-22 12:57] VITALS: BP 126/57
[2018-02-22 13:10] LABS: HEMATOCRIT. 33.4 % (36.0-48.0); HEMOGLOBIN. 10.9 g/dL (12.0-16.0); MEAN CORPUSCULAR HEMOGLOBIN 30.4 pg (28.0-32.0); MEAN CORPUSCULAR VOLUME 92.6 fL (81.0-99.0); MEAN PLATELET VOLUME 9.5 fl (7.4-10.4); PLATELET 233 x1000/uL (130-400); RED CELL DISTRIBUTION WIDTH 18.6 % (11.6-14.6)
[2018-02-22 13:31] LABS: CREATINE KINASE MB FRACTION 1.5 ng/mL (0.5-3.6)
[2018-02-22 14:16] LABS: PLATELET ESTIMATE NORMAL
[2018-02-22] MEDS ORDERED: CLOPIDOGREL 75MG TABLET PO SCH (15:45)
[2018-02-22 16:22] VITALS: BP 146/68
[2018-02-22 17:20] LABS: CLARITY URINE CLOUDY (CLEAR); COLOR URINE DARK YELLOW (YELLOW); KETONES URINE TRACE (NEGATIVE); LEUKOCYTE ESTERASE URINE TRACE (NEGATIVE); NITRITE URINE NEGATIVE (NEGATIVE); OCCULT BLOOD URINE TRACE (NEGATIVE); PROTEIN URINE 4+ (NEGATIVE); SPECIFIC GRAVITY URINE 1.028 (1.005-1.030)
[2018-02-22 17:24] LABS: AMMONIA 35 uMol/L (<32)
[2018-02-22 17:28] LABS: CREATINE KINASE MB FRACTION 1.5 ng/mL (0.5-3.6)
[2018-02-22 17:46] LABS: VITAMIN B12 SERUM 1131 pg/mL (211-911)
[2018-02-22 18:01] LABS: *AMPHETAMINES SCREEN URINE NEGATIVE (NEGATIVE); *BARBITURATES SCREEN URINE NEGATIVE (NEGATIVE); *BENZODIAZEPINES SCREEN URINE PRESUMTIVE POSITIVE (NEGATIVE); *COCAINE SCREEN URINE NEGATIVE (NEGATIVE); METHADONE URINE SCREEN NEGATIVE (NEGATIVE)
[2018-02-22 18:02] LABS: CANNABINOID URINE SCREEN NEGATIVE (NEGATIVE); OPIATES URINE SCREEN PRESUMTIVE POSITIVE (NEGATIVE); PHENCYCLIDINE URINE SCREEN NEGATIVE (NEGATIVE)
[2018-02-22 20:00] VITALS: BP 121/56
[2018-02-22] MEDS ORDERED: CEFTRIAXONE 1 G PREMIX 50 ML IV SCH (22:00)
[2018-02-22] MEDS: CEFTRIAXONE 1 G PREMIX 50 ML IV SCH (23:17)
[2018-02-23] VITALS (25 sets, daily range): BP systolic 98–191; BP diastolic 53–97
[2018-02-23 06:23] LABS: HEMATOCRIT. 28.7 % (36.0-48.0); HEMOGLOBIN. 9.5 g/dL (12.0-16.0); MEAN CORPUSCULAR HEMOGLOBIN 30.3 pg (28.0-32.0); MEAN PLATELET VOLUME 9.6 fl (7.4-10.4); PLATELET 180 x1000/uL (130-400); RED BLOOD CELL COUNT 3.13 mill/uL (4.2-5.4); RED CELL DISTRIBUTION WIDTH 18.3 % (11.6-14.6)
[2018-02-23] MEDS: BLOOD SUGAR DIAGNOSTIC STRIP TEST SCH ×4 (07:40→21:05)
[2018-02-23] MEDS: INSULIN LISPRO 100 UNITS/ML SUBCUT SCH ×4 (08:10→21:00)
[2018-02-23] MEDS: MULTIVITAMINS,THER W-MINERALS TABLET GT SCH (09:00)
[2018-02-23] MEDS: FOLIC ACID 1MG TABLET GT SCH (09:00)
[2018-02-23 10:55] LABS: PLATELET ESTIMATE NORMAL
[2018-02-23] MEDS: SODIUM CHLORIDE 0.9% 1,000 ML IV SCH (11:47)
[2018-02-23 13:35] LABS: AMMONIA 36 uMol/L (<32)
[2018-02-23] MEDS: CLONIDINE 0.1MG TABLET GT PRN (20:19)
[2018-02-23] MEDS ORDERED: NICARDIPINE 100 MG in SODIUM CHLORIDE 0.9% 60 ML IV PRN (20:30)
[2018-02-23] MEDS: DEXT 5%/LACTATED RINGERS 1,000 ML IV SCH (21:16)
[2018-02-23] MEDS: CEFTRIAXONE 1 G PREMIX 50 ML IV SCH (21:18)
[2018-02-23] MEDS: LEVETIRACETAM 250 MG in SODIUM CHLORIDE 0.9% 100 ML IV SCH (21:19)
[2018-02-24] VITALS (91 sets, daily range): BP systolic 101–150; BP diastolic 36–106
[2018-02-24 05:25] LABS: HEMOGLOBIN. 10.1 g/dL (12.0-16.0); MEAN CORPUSCULAR HEMOGLOBIN 30.9 pg (28.0-32.0); MEAN PLATELET VOLUME 9.6 fl (7.4-10.4); PLATELET 225 x1000/uL (130-400); RED BLOOD CELL COUNT 3.26 mill/uL (4.2-5.4)
[2018-02-24] MEDS: BLOOD SUGAR DIAGNOSTIC STRIP TEST SCH ×4 (05:51→20:57)
[2018-02-24] MEDS: INSULIN LISPRO 100 UNITS/ML SUBCUT SCH ×4 (07:00→20:57)
[2018-02-24] MEDS: LEVETIRACETAM 250 MG in SODIUM CHLORIDE 0.9% 100 ML IV SCH ×2 (08:54→20:57)
[2018-02-24] MEDS: MULTIVITAMINS,THER W-MINERALS TABLET GT SCH (09:00)
[2018-02-24] MEDS: FOLIC ACID 1MG TABLET GT SCH (09:00)
[2018-02-24 09:37] LABS: PLATELET ESTIMATE NORMAL
[2018-02-24] MEDS ORDERED: KCL 20MEQ/100ML PREMIX 100 ML IV SCH (11:00)
[2018-02-24] MEDS: CEFTRIAXONE 1 G PREMIX 50 ML IV SCH (20:57)
[2018-02-24] MEDS: DEXT 5%/LACTATED RINGERS 1,000 ML IV SCH (20:57)
[2018-02-25] VITALS (69 sets, daily range): BP systolic 96–175; BP diastolic 36–113
[2018-02-25 05:33] LABS: HEMATOCRIT. 28.7 % (36.0-48.0); HEMOGLOBIN. 9.4 g/dL (12.0-16.0); MEAN CORPUSCULAR HEMOGLOBIN 30.3 pg (28.0-32.0); MEAN CORPUSCULAR VOLUME 92.4 fL (81.0-99.0); MEAN PLATELET VOLUME 9.5 fl (7.4-10.4); PLATELET 228 x1000/uL (130-400); RED BLOOD CELL COUNT 3.11 mill/uL (4.2-5.4); RED CELL DISTRIBUTION WIDTH 18.3 % (11.6-14.6)
[2018-02-25 05:59] LABS: PHOSPHORUS 1.2 mg/dL (2.5-4.9)
[2018-02-25] MEDS: BLOOD SUGAR DIAGNOSTIC STRIP TEST SCH ×4 (06:11→21:13)
[2018-02-25] MEDS: INSULIN LISPRO 100 UNITS/ML SUBCUT SCH (06:11)
[2018-02-25] MEDS: FOLIC ACID 1MG TABLET GT SCH (09:00)
[2018-02-25] MEDS: MULTIVITAMINS,THER W-MINERALS TABLET GT SCH (09:00)
[2018-02-25 09:44] LABS: PLATELET ESTIMATE NORMAL
[2018-02-25] MEDS: HYDRALAZINE 20MG/ML VIAL IV SCH ×2 (10:30→18:23)
[2018-02-25] MEDS: LEVETIRACETAM 250 MG in SODIUM CHLORIDE 0.9% 100 ML IV SCH ×2 (10:56→21:14)
[2018-02-25] MEDS ORDERED: ACETAMINOPHEN 650MG/20.3ML UDC GT PRN (21:00)
[2018-02-25] MEDS: LACTULOSE 20G/30ML UDC PO SCH (21:13)
[2018-02-25] MEDS: MORPHINE SULFATE 4 MG/ML CPJ (NOT FOR IM USE) IV PRN (21:59)
[2018-02-26] VITALS (58 sets, daily range): BP systolic 113–160; BP diastolic 52–137
[2018-02-26] MEDS: HYDRALAZINE 20MG/ML VIAL IV SCH ×5 (00:20→23:23)
[2018-02-26 06:04] LABS: BASOPHILS % 1.8 % (0.0-2.0); EOSINOPHILS % 3.4 % (0.0-5.0); HEMATOCRIT. 32.2 % (36.0-48.0); HEMOGLOBIN. 10.7 g/dL (12.0-16.0); LYMPHOCYTES % 26.6 % (20.0-50.0); MEAN CORPUSCULAR HEMOGLOBIN 30.8 pg (28.0-32.0); MEAN CORPUSCULAR VOLUME 93.1 fL (81.0-99.0); MEAN PLATELET VOLUME 9.7 fl (7.4-10.4); MONOCYTES % 10.2 % (2.0-8.0); PLATELET 298 x1000/uL (130-400); RED BLOOD CELL COUNT 3.45 mill/uL (4.2-5.4)
[2018-02-26] MEDS: BLOOD SUGAR DIAGNOSTIC STRIP TEST SCH ×4 (06:45→21:35)
[2018-02-26] MEDS: LACTULOSE 20G/30ML UDC PO SCH ×3 (06:45→21:35)
[2018-02-26] MEDS: MORPHINE SULFATE 4 MG/ML CPJ (NOT FOR IM USE) IV PRN ×3 (08:03→23:13)
[2018-02-26] MEDS: LEVETIRACETAM 250 MG in SODIUM CHLORIDE 0.9% 100 ML IV SCH ×2 (09:44→21:35)
[2018-02-26] MEDS: FOLIC ACID 1MG TABLET GT SCH (09:44)
[2018-02-26] MEDS: MULTIVITAMINS,THER W-MINERALS TABLET GT SCH (09:44)
[2018-02-27] VITALS (71 sets, daily range): BP systolic 83–155; BP diastolic 24–103
[2018-02-27] MEDS: LACTULOSE 20G/30ML UDC PO SCH ×3 (05:17→22:00)
[2018-02-27] MEDS: HYDRALAZINE 20MG/ML VIAL IV SCH ×3 (05:17→17:39)
[2018-02-27] MEDS: BLOOD SUGAR DIAGNOSTIC STRIP TEST SCH ×4 (05:24→21:00)
[2018-02-27 05:54] LABS: BASOPHILS % 1.5 % (0.0-2.0); HEMATOCRIT. 30.6 % (36.0-48.0); LYMPHOCYTES % 20.7 % (20.0-50.0); MEAN CORPUSCULAR HEMOGLOBIN 30.4 pg (28.0-32.0); MEAN CORPUSCULAR VOLUME 93.5 fL (81.0-99.0); MEAN PLATELET VOLUME 10.1 fl (7.4-10.4); MONOCYTES % 11.6 % (2.0-8.0); NEUTROPHILS % 59.2 % (40.0-76.0); PLATELET 291 x1000/uL (130-400); RED BLOOD CELL COUNT 3.28 mill/uL (4.2-5.4); RED CELL DISTRIBUTION WIDTH 18.3 % (11.6-14.6)
[2018-02-27 06:14] LABS: PHOSPHORUS 1.7 mg/dL (2.5-4.9)
[2018-02-27] MEDS: MULTIVITAMINS,THER W-MINERALS TABLET GT SCH (08:24)
[2018-02-27] MEDS: FOLIC ACID 1MG TABLET GT SCH (08:24)
[2018-02-27] MEDS: MORPHINE SULFATE 4 MG/ML CPJ (NOT FOR IM USE) IV PRN (08:26)
[2018-02-27] MEDS ORDERED: HEPARIN SODIUM 1,000 UNIT/1ML VIAL IV NR (09:00)
[2018-02-27] MEDS: DIPHENHYDRAMINE 50MG/ML VIAL IV PRN (09:37)
[2018-02-27] MEDS: LEVETIRACETAM 250 MG in SODIUM CHLORIDE 0.9% 100 ML IV SCH ×2 (09:37→21:00)
[2018-02-28] VITALS (74 sets, daily range): BP systolic 102–159; BP diastolic 41–112
[2018-02-28 05:47] LABS: BASOPHILS % 1.7 % (0.0-2.0); HEMATOCRIT. 24.6 % (36.0-48.0); HEMOGLOBIN. 8.1 g/dL (12.0-16.0); LYMPHOCYTES % 19.6 % (20.0-50.0); MEAN CORPUSCULAR HEMOGLOBIN 30.3 pg (28.0-32.0); MEAN CORPUSCULAR VOLUME 91.8 fL (81.0-99.0); MEAN PLATELET VOLUME 9.6 fl (7.4-10.4); MONOCYTES % 9.7 % (2.0-8.0); PLATELET 205 x1000/uL (130-400); RED BLOOD CELL COUNT 2.67 mill/uL (4.2-5.4); RED CELL DISTRIBUTION WIDTH 18.4 % (11.6-14.6)
[2018-02-28] MEDS: BLOOD SUGAR DIAGNOSTIC STRIP TEST SCH ×4 (06:30→21:23)
[2018-02-28] MEDS: LACTULOSE 20G/30ML UDC PO SCH ×3 (07:07→22:00)
[2018-02-28] MEDS: HYDRALAZINE 20MG/ML VIAL IV SCH ×4 (07:07→18:22)
[2018-02-28] MEDS: FOLIC ACID 1MG TABLET GT SCH (08:02)
[2018-02-28] MEDS: DIPHENHYDRAMINE 50MG/ML VIAL IV PRN ×2 (08:02→23:20)
[2018-02-28] MEDS: MULTIVITAMINS,THER W-MINERALS TABLET GT SCH (08:02)
[2018-02-28] MEDS: LEVETIRACETAM 250 MG in SODIUM CHLORIDE 0.9% 100 ML IV SCH ×2 (10:02→20:49)
[2018-02-28] MEDS: MORPHINE SULFATE 4 MG/ML CPJ (NOT FOR IM USE) IV PRN (11:00)
[2018-02-28] MEDS: INSULIN LISPRO 100 UNITS/ML SUBCUT SCH (21:00)
[2018-03-01] MEDS: HYDRALAZINE 20MG/ML VIAL IV SCH ×3 (01:51→12:00)
[2018-03-01] MEDS: LACTULOSE 20G/30ML UDC PO SCH ×3 (05:32→21:05)
[2018-03-01] MEDS: BLOOD SUGAR DIAGNOSTIC STRIP TEST SCH ×4 (05:43→20:57)
[2018-03-01] MEDS: INSULIN LISPRO 100 UNITS/ML SUBCUT SCH ×4 (06:12→20:57)
[2018-03-01 06:31] LABS: BASOPHILS % 1.2 % (0.0-2.0); EOSINOPHILS % 9.6 % (0.0-5.0); HEMATOCRIT. 27.7 % (36.0-48.0); HEMOGLOBIN. 9.2 g/dL (12.0-16.0); LYMPHOCYTES % 18.5 % (20.0-50.0); MEAN CORPUSCULAR HEMOGLOBIN 30.7 pg (28.0-32.0); MEAN CORPUSCULAR VOLUME 92.5 fL (81.0-99.0); MEAN PLATELET VOLUME 9.6 fl (7.4-10.4); MONOCYTES % 9.2 % (2.0-8.0); NEUTROPHILS % 61.5 % (40.0-76.0); PLATELET 250 x1000/uL (130-400); RED CELL DISTRIBUTION WIDTH 18.5 % (11.6-14.6)
[2018-03-01 08:00] VITALS: BP 122/50
[2018-03-01] MEDS: MULTIVITAMINS,THER W-MINERALS TABLET GT SCH (10:02)
[2018-03-01] MEDS: LEVETIRACETAM 250 MG in SODIUM CHLORIDE 0.9% 100 ML IV SCH ×2 (10:02→20:59)
[2018-03-01] MEDS: FOLIC ACID 1MG TABLET GT SCH (10:02)
[2018-03-01 12:00] VITALS: BP 136/55
[2018-03-01 16:00] VITALS: BP 115/89
[2018-03-01] MEDS: HYDRALAZINE 10 MG in SODIUM CHLORIDE 0.9% 50 ML IV SCH (18:31)
[2018-03-01 19:56] VITALS: BP 125/65
[2018-03-01] MEDS: DIPHENHYDRAMINE 50MG/ML VIAL IV PRN (20:12)
[2018-03-02] MEDS: CLONIDINE 0.1MG TABLET GT PRN (00:17)
[2018-03-02 00:20] VITALS: BP 178/75
[2018-03-02] MEDS: HYDRALAZINE 10 MG in SODIUM CHLORIDE 0.9% 50 ML IV SCH ×3 (00:30→12:00)
[2018-03-02 04:09] VITALS: BP 133/56
[2018-03-02] MEDS: LACTULOSE 20G/30ML UDC PO SCH (05:55)
[2018-03-02] MEDS: BLOOD SUGAR DIAGNOSTIC STRIP TEST SCH ×2 (07:20→12:20)
[2018-03-02] MEDS: INSULIN LISPRO 100 UNITS/ML SUBCUT SCH ×2 (07:50→12:50)
[2018-03-02] MEDS: FOLIC ACID 1MG TABLET GT SCH (09:39)
[2018-03-02] MEDS: MULTIVITAMINS,THER W-MINERALS TABLET GT SCH (09:39)
[2018-03-02] MEDS: LEVETIRACETAM 250 MG in SODIUM CHLORIDE 0.9% 100 ML IV SCH (09:39)
[2018-03-02 12:30] VITALS: BP 130/68
[2018-03-02] MEDS ORDERED: ATOR40TA70 GT (12:45)
[2018-03-02] MEDS ORDERED: HYDROCODONE/ACETAMINOPHEN 10/325MG TABLET PO NR (13:30)
[2018-03-02] MEDS ORDERED: ATORVASTATIN CALCIUM 40MG TABLET GT SCH (21:00)
== END 2018-03-02 13:20 | DRG 720 ==
LOC: ER 19:59 → 7WST 22:18 → EDBEDREQ 22:20 → MICUSO 02-23 18:48 → 6EST 02-28 22:50
PROVIDERS: ADMIT Internal Medicine; ATTEND Internal Medicine
PROC: 5A1D70Z Performance of Urinary Filtration, Intermittent, Less than 6 Hours Per Day (ICD-10-PCS; principal; 2018-02-22)
PROC: 5A1D70Z Performance of Urinary Filtration, Intermittent, Less than 6 Hours Per Day (ICD-10-PCS; 2018-02-24)
PROC: 5A1D70Z Performance of Urinary Filtration, Intermittent, Less than 6 Hours Per Day (ICD-10-PCS; 2018-02-26)
PROC: 5A1D70Z Performance of Urinary Filtration, Intermittent, Less than 6 Hours Per Day (ICD-10-PCS; 2018-03-01)
DX: A41.9 Sepsis, unspecified organism (principal); I61.9 Nontraumatic intracerebral hemorrhage, unspecified; E43 Unspecified severe protein-calorie malnutrition; I13.2 Hypertensive heart and chronic kidney disease with heart failure and with stage 5 chronic kidney disease, or end stage renal disease; G92 Toxic encephalopathy; J84.9 Interstitial pulmonary disease, unspecified; L89.159 Pressure ulcer of sacral region, unspecified stage; N18.6 End stage renal disease; D57.1 Sickle-cell disease without crisis; R41.4 Neurologic neglect syndrome; I50.32 Chronic diastolic (congestive) heart failure; E11.22 Type 2 diabetes mellitus with diabetic chronic kidney disease; E11.65 Type 2 diabetes mellitus with hyperglycemia; N39.0 Urinary tract infection, site not specified; C50.911 Malignant neoplasm of unspecified site of right female breast; Z99.2 Dependence on renal dialysis; E78.5 Hyperlipidemia, unspecified; E87.6 Hypokalemia; F20.9 Schizophrenia, unspecified; F32.9 Major depressive disorder, single episode, unspecified; G40.909 Epilepsy, unspecified, not intractable, without status epilepticus; H05.20 Unspecified exophthalmos; H40.9 Unspecified glaucoma; L90.9 Atrophic disorder of skin, unspecified; M19.90 Unspecified osteoarthritis, unspecified site; Z85.3 Personal history of malignant neoplasm of breast; Z93.1 Gastrostomy status; Z86.73 Personal history of transient ischemic attack (TIA), and cerebral infarction without residual deficits; Z68.22 Body mass index [BMI] 22.0-22.9, adult; Z91.15 Patient's noncompliance with renal dialysis; Z87.828 Personal history of other (healed) physical injury and trauma; Z88.8 Allergy status to other drugs, medicaments and biological substances
CPT/HCPCS: 36415; 70450; 70544; 70551; 71045; 80048; 80053; 80061; 80305; 81003; 82140; 82550; 82553; 82607; 82962; 83036; 83615; 83735; 84100; 84443; 84484; 85025; 85610; 86592; 87040; 92523; 92610; 93005; 93306; 93880; 93970; 93971; 97163; 97164; 97165; A6261; C1893; J0360; J0696; J1200; J1644; J1815; J1953; J2270; J3480; J3490; J7030; J7040; J7050; J7121; J7620; A4315

== ENCOUNTER 2018-05-24 22:19 | Inpatient (IN) | payer MEDICAID ==
[~2018-05-24] VITALS: Ht 165.1 cm; Wt 52.6 kg
[~2018-05-24 22:19] MED LIST changes: +ATOR40TA70 GT
[2018-05-24 23:52] LABS: BASOPHILS % 0.9 % (0.0-2.0); EOSINOPHILS % 3.2 % (0.0-5.0); HEMATOCRIT. 39.8 % (36.0-48.0); HEMOGLOBIN. 13.1 g/dL (12.0-16.0); LYMPHOCYTES % 32.7 % (20.0-50.0); MEAN CORPUSCULAR HEMOGLOBIN 28.2 pg (28.0-32.0); MEAN CORPUSCULAR VOLUME 85.8 fL (81.0-99.0); MEAN PLATELET VOLUME 9.6 fl (7.4-10.4); MONOCYTES % 12.1 % (2.0-8.0); NEUTROPHILS % 51.1 % (40.0-76.0); PLATELET 198 x1000/uL (130-400); RED BLOOD CELL COUNT 4.63 mill/uL (4.2-5.4); RED CELL DISTRIBUTION WIDTH 15.4 % (11.6-14.6)
[2018-05-24 23:55] LABS: CHLORIDE 101 mEq/L (98-107)
[2018-05-24 23:57] LABS: INR 1.1; PROTHROMBIN TIME 10.7 sec (9.1-11.1)
[2018-05-25 00:57] LABS: CLARITY URINE CLEAR (CLEAR); COLOR URINE YELLOW (YELLOW); KETONES URINE NEGATIVE (NEGATIVE); LEUKOCYTE ESTERASE URINE TRACE (NEGATIVE); NITRITE URINE NEGATIVE (NEGATIVE); OCCULT BLOOD URINE NEGATIVE (NEGATIVE); PROTEIN URINE 3+ (NEGATIVE); SPECIFIC GRAVITY URINE 1.014 (1.005-1.030)
[2018-05-25 10:15] VITALS: BP 141/78
[2018-05-25] MEDS ORDERED: HYDROCODONE/ACETAMINOPHEN 5/325MG TABLET PO PRN (11:00)
[2018-05-25] MEDS ORDERED: NA PHOS,M-B/NA PHOS,DI-BA ENEMA 118ML PR PRN (11:00)
[2018-05-25] MEDS ORDERED: ENOXAPARIN 40MG/0.4ML SYR SUBCUT SCH (11:00)
[2018-05-25] MEDS ORDERED: IPRATROPIUM/ALBUTEROL 0.5-3(2.5)MG/3ML NEB INH PRN (11:00)
[2018-05-25] MEDS ORDERED: DIPHENHYDRAMINE 50MG/ML VIAL IV PRN (11:00)
[2018-05-25] MEDS ORDERED: ACETAMINOPHEN 325MG TABLET PO PRN (11:00)
[2018-05-25] MEDS ORDERED: DOCUSATE SODIUM 100MG CAPSULE PO PRN (11:00)
[2018-05-25] MEDS ORDERED: ACETAMINOPHEN 650MG/20.3ML UDC GT PRN (11:00)
[2018-05-25] MEDS ORDERED: GUAIFENESIN 200MG/10ML SUGAR FREE UDC PO PRN (11:00)
[2018-05-25] MEDS ORDERED: MAGNESIUM/ALUMINUM HYDROXIDE/SIMETHICONE 30ML UDC PO PRN (11:00)
[2018-05-25] MEDS ORDERED: ACETAMINOPHEN 650MG SUPP PR PRN (11:00)
[2018-05-25] MEDS ORDERED: CLONIDINE 0.1MG TABLET PO PRN (11:00)
[2018-05-25] MEDS ORDERED: ONDANSETRON HCL 4MG/2ML INJ IV PRN (11:00)
[2018-05-25 12:00] VITALS: BP 145/76
[2018-05-25] MEDS ORDERED: ALTEPLASE 2MG/VIAL ITC NR (13:00)
[2018-05-25] MEDS: SODIUM CHLORIDE 0.9% INJ 3ML FLUSH IVF SCH ×2 (14:00→22:02)
[2018-05-25 16:00] VITALS: BP 134/67
[2018-05-25] MEDS: ENOXAPARIN 30MG/0.3ML SYR SUBCUT SCH (18:00)
[2018-05-25 20:00] VITALS: BP 97/51
[2018-05-25] MEDS ORDERED: TRAM50TA3 MT (21:03)
[2018-05-25] MEDS ORDERED: GABA-529 MT (21:03)
[2018-05-25] MEDS ORDERED: DOCU-138 MT (21:03)
[2018-05-25] MEDS ORDERED: KEPP250 GT (21:03)
[2018-05-25] MEDS ORDERED: CLON0.1T MT (21:03)
[2018-05-25] MEDS ORDERED: LACT10SO7 GT (21:03)
[2018-05-25] MEDS ORDERED: IPRA3AMP9 HHN ×2 (21:03→21:15)
[2018-05-25] MEDS ORDERED: AMIN30LI2 GT (21:09)
[2018-05-25] MEDS ORDERED: NEPVIT GT (21:09)
[2018-05-25] MEDS ORDERED: CLON0.1T GT (21:15)
[2018-05-25] MEDS ORDERED: FOLI-43 GT (21:15)
[2018-05-25] MEDS ORDERED: DOCU-150 GT (21:15)
[2018-05-25] MEDS ORDERED: GABA-529 GT (21:15)
[2018-05-25] MEDS ORDERED: TRAM50TA3 GT (21:15)
[2018-05-25] MEDS ORDERED: IPRATROPIUM/ALBUTEROL 0.5-3(2.5)MG/3ML NEB HHN PRN (21:30)
[2018-05-25] MEDS: LEVETIRACETAM 250MG TABLET GT SCH (22:02)
[2018-05-25] MEDS: FOLIC ACID/VITAMIN B COMP W-C TABLET GT SCH (22:02)
[2018-05-26] VITALS: BP_SYST 97; BP_SYST 98; BP_DIAS 55
[2018-05-26 04:00] VITALS: BP 100/57
[2018-05-26] MEDS: SODIUM CHLORIDE 0.9% INJ 3ML FLUSH IVF SCH ×3 (05:20→21:02)
[2018-05-26 08:00] VITALS: BP_SYST 100; BP_SYST 143; BP_DIAS 53; BP_DIAS 86
[2018-05-26] MEDS: LEVETIRACETAM 250MG TABLET GT SCH ×2 (09:27→21:02)
[2018-05-26] MEDS: FOLIC ACID/VITAMIN B COMP W-C TABLET GT SCH (09:27)
[2018-05-26] MEDS: ENOXAPARIN 30MG/0.3ML SYR SUBCUT SCH (09:28)
[2018-05-26 12:00] VITALS: BP 115/67
[2018-05-26 16:00] VITALS: BP 137/64
[2018-05-26 20:00] VITALS: BP 124/68
[2018-05-26] MEDS: CLONIDINE 0.1MG TABLET GT SCH (21:02)
[2018-05-26] MEDS: ATORVASTATIN CALCIUM 40MG TABLET GT SCH (21:02)
[2018-05-27] VITALS (7 sets, daily range): BP systolic 95–127; BP diastolic 37–84
[2018-05-27 00:27] LABS: BASOPHILS % 0.9 % (0.0-2.0); EOSINOPHILS % 3.2 % (0.0-5.0); HEMATOCRIT. 35.4 % (36.0-48.0); HEMOGLOBIN. 11.7 g/dL (12.0-16.0); LYMPHOCYTES % 35.8 % (20.0-50.0); MEAN CORPUSCULAR HEMOGLOBIN 28.4 pg (28.0-32.0); MEAN CORPUSCULAR VOLUME 85.8 fL (81.0-99.0); MEAN PLATELET VOLUME 9.6 fl (7.4-10.4); MONOCYTES % 10.7 % (2.0-8.0); NEUTROPHILS % 49.4 % (40.0-76.0); PLATELET 184 x1000/uL (130-400); RED BLOOD CELL COUNT 4.13 mill/uL (4.2-5.4); RED CELL DISTRIBUTION WIDTH 15.7 % (11.6-14.6)
[2018-05-27 00:32] LABS: CHLORIDE 99 mEq/L (98-107)
[2018-05-27] MEDS: SODIUM CHLORIDE 0.9% INJ 3ML FLUSH IVF SCH ×3 (05:49→22:17)
[2018-05-27] MEDS: FOLIC ACID/VITAMIN B COMP W-C TABLET GT SCH (09:01)
[2018-05-27] MEDS: LEVETIRACETAM 250MG TABLET GT SCH (09:01)
[2018-05-27] MEDS: ENOXAPARIN 30MG/0.3ML SYR SUBCUT SCH (09:02)
[2018-05-27] MEDS ORDERED: LEVETIRACETAM 500MG/5ML CUP GT SCH (21:00)
[2018-05-27] MEDS: ATORVASTATIN CALCIUM 40MG TABLET GT SCH (22:15)
[2018-05-27] MEDS: CLONIDINE 0.1MG TABLET GT SCH (22:16)
== END 2018-05-27 23:45 | DRG 466 ==
LOC: ER 22:52 → 8WST 05-25 08:42 → ENRESERV 05-25 08:42
PROVIDERS: ADMIT Family Medicine; ATTEND Family Medicine
PROC: 5A1D70Z Performance of Urinary Filtration, Intermittent, Less than 6 Hours Per Day (ICD-10-PCS; principal; 2018-05-25)
PROC: 5A1D70Z Performance of Urinary Filtration, Intermittent, Less than 6 Hours Per Day (ICD-10-PCS; 2018-05-27)
DX: T82.898A Other specified complication of vascular prosthetic devices, implants and grafts, initial encounter (principal); I13.11 Hypertensive heart and chronic kidney disease without heart failure, with stage 5 chronic kidney disease, or end stage renal disease; E43 Unspecified severe protein-calorie malnutrition; E87.2 Acidosis; E11.21 Type 2 diabetes mellitus with diabetic nephropathy; C50.919 Malignant neoplasm of unspecified site of unspecified female breast; R13.10 Dysphagia, unspecified; T82.41XA Breakdown (mechanical) of vascular dialysis catheter, initial encounter; F03.90 Unspecified dementia, unspecified severity, without behavioral disturbance, psychotic disturbance, mood disturbance, and anxiety; G40.909 Epilepsy, unspecified, not intractable, without status epilepticus; E66.9 Obesity, unspecified; E78.5 Hyperlipidemia, unspecified; N18.6 End stage renal disease; K30 Functional dyspepsia; K59.00 Constipation, unspecified; Y84.1 Kidney dialysis as the cause of abnormal reaction of the patient, or of later complication, without mention of misadventure at the time of the procedure; E11.22 Type 2 diabetes mellitus with diabetic chronic kidney disease; Z99.2 Dependence on renal dialysis; Z74.01 Bed confinement status; Z93.1 Gastrostomy status; Z68.1 Body mass index [BMI] 19.9 or less, adult; Z85.3 Personal history of malignant neoplasm of breast; Z87.820 Personal history of traumatic brain injury; Z90.11 Acquired absence of right breast and nipple; I69.322 Dysarthria following cerebral infarction; Z88.8 Allergy status to other drugs, medicaments and biological substances; Z79.899 Other long term (current) drug therapy; Z79.82 Long term (current) use of aspirin; Y92.89 Other specified places as the place of occurrence of the external cause
CPT/HCPCS: 36415; 71045; 80053; 81003; 85025; 85610; 92610; 93005; 99285; C1893; J1650; J2997

== ENCOUNTER 2018-06-15 11:13 | Emergency (ER) | payer MEDICAID, OTHER ==
[~2018-06-15] VITALS: Ht 162.6 cm; Wt 55.0 kg
[~2018-06-15 11:13] MED LIST changes: +AMIN30LI2 GT; -ASPI-986; -BACL-141; +CLON0.1T GT; -DIVA250T4; +DOCU-150 GT; +FOLI-43 GT; +GABA-529 GT; -GLIP10TA3; +IPRA3AMP9 HHN; +KEPP250 GT; +LACT10SO7 GT; -LISI-604; -MOM; +NEPVIT GT; -RISP2; +TRAM50TA3 GT; -VALS160T2
[2018-06-15 14:09] VITALS: BP 113/66
== END 2018-06-15 14:10 ==
LOC: ER 11:13
DX: R68.89 Other general symptoms and signs (principal); D64.9 Anemia, unspecified; F41.9 Anxiety disorder, unspecified; F32.9 Major depressive disorder, single episode, unspecified; E11.9 Type 2 diabetes mellitus without complications; E78.00 Pure hypercholesterolemia, unspecified; I10 Essential (primary) hypertension; F20.9 Schizophrenia, unspecified; Z45.2 Encounter for adjustment and management of vascular access device; Z88.8 Allergy status to other drugs, medicaments and biological substances; Z79.899 Other long term (current) drug therapy
CPT/HCPCS: 99283

== ENCOUNTER 2018-07-11 21:02 | Emergency (ER) | payer MEDICAID ==
[~2018-07-11] VITALS: Ht 162.6 cm; Wt 54.0 kg
[2018-07-12] LABS: BASOPHILS % 0.6 % (0.0-2.0); HEMATOCRIT. 28.1 % (36.0-48.0); HEMOGLOBIN. 9.3 g/dL (12.0-16.0); LYMPHOCYTES % 10.7 % (20.0-50.0); MEAN CORPUSCULAR HEMOGLOBIN 28.9 pg (28.0-32.0); MEAN CORPUSCULAR VOLUME 87.5 fL (81.0-99.0); MEAN PLATELET VOLUME 8.8 fl (7.4-10.4); MONOCYTES % 7.8 % (2.0-8.0); NEUTROPHILS % 79.9 % (40.0-76.0); PLATELET 307 x1000/uL (130-400); RED BLOOD CELL COUNT 3.21 mill/uL (4.2-5.4); RED CELL DISTRIBUTION WIDTH 16.2 % (11.6-14.6)
[2018-07-12 00:10] LABS: CHLORIDE 97 mEq/L (98-107)
[2018-07-12 02:57] VITALS: BP 149/74
== END 2018-07-12 03:21 | disposition home or self-care (01) ==
LOC: ER 22:49
DX: N19 Unspecified kidney failure (principal); D64.9 Anemia, unspecified; F41.9 Anxiety disorder, unspecified; F32.9 Major depressive disorder, single episode, unspecified; E11.9 Type 2 diabetes mellitus without complications; E78.00 Pure hypercholesterolemia, unspecified; I10 Essential (primary) hypertension; F20.9 Schizophrenia, unspecified; Z86.73 Personal history of transient ischemic attack (TIA), and cerebral infarction without residual deficits; Z79.899 Other long term (current) drug therapy; Z88.8 Allergy status to other drugs, medicaments and biological substances
CPT/HCPCS: 36415; 71045; 83880; 84484; 93005; 99285

== ENCOUNTER 2018-07-30 09:13 | Inpatient (IN) | payer MEDICAID, OTHER ==
[~2018-07-30] VITALS: Ht 162.6 cm; Wt 62.1 kg
[2018-07-30] VITALS (7 sets, daily range): BP systolic 129–144; BP diastolic 61–79
[~2018-07-30 09:13] MED LIST changes: -ACET-2178; +ACET-2178 GT
[2018-07-30] MEDS ORDERED: ACETAMINOPHEN 650MG SUPP PR STA (09:40)
[2018-07-30] MEDS ORDERED: SODIUM CHLORIDE 0.9% 1,000 ML IV ONE ×2 (09:40→11:30)
[2018-07-30] MEDS ORDERED: VANCOMYCIN 1 G PREMIX 200 ML IV ONE (09:45)
[2018-07-30] MEDS ORDERED: PIPERACILLIN/TAZ 3.375G PREMIX 50 ML IV ONE (09:45)
[2018-07-30 11:11] LABS: CLARITY URINE TURBID (CLEAR); COLOR URINE YELLOW (YELLOW); KETONES URINE TRACE (NEGATIVE); LEUKOCYTE ESTERASE URINE 3+ (NEGATIVE); NITRITE URINE NEGATIVE (NEGATIVE); OCCULT BLOOD URINE 1+ (NEGATIVE); PROTEIN URINE 4+ (NEGATIVE); SPECIFIC GRAVITY URINE 1.018 (1.005-1.030)
[2018-07-30 11:18] LABS: BASOPHILS % 0.6 % (0.0-2.0); CHLORIDE 95 mEq/L (98-107); EOSINOPHILS % 1.3 % (0.0-5.0); LYMPHOCYTES % 8.4 % (20.0-50.0); MEAN CORPUSCULAR VOLUME 84.3 fL (81.0-99.0); MONOCYTES % 7.5 % (2.0-8.0); NEUTROPHILS % 82.2 % (40.0-76.0); PLATELET 369 x1000/uL (130-400); RED BLOOD CELL COUNT 2.09 mill/uL (4.2-5.4); RED CELL DISTRIBUTION WIDTH 16.4 % (11.6-14.6)
[2018-07-30 11:19] LABS: INR 1.1
[2018-07-30 11:25] LABS: HEMATOCRIT. 17.6 % (36.0-48.0); HEMOGLOBIN. 5.6 g/dL (12.0-16.0)
[2018-07-30] MEDS ORDERED: SODIUM CHLORIDE 0.9% 100 ML IV ONE (11:30)
[2018-07-30] MEDS ORDERED: PIPERACILLIN/TAZ 3.375G PREMIX 50 ML IV SCH (14:00)
[2018-07-30 16:04] LABS: TOTAL IRON BINDING CAPACITY 100 ug/dL (250-450)
[2018-07-30] MEDS ORDERED: VANCOMYCIN 500 MG PREMIX 100 ML IV SCH (17:00)
[2018-07-30] MEDS ORDERED: DEXTROSE 50% WATER 50ML SYRINGE IV PRN ×2 (17:15)
[2018-07-30] MEDS: PANTOPRAZOLE SODIUM 40 MG/VIAL IV SCH (17:43)
[2018-07-30] MEDS: BLOOD SUGAR DIAGNOSTIC STRIP TEST SCH (17:47)
[2018-07-30] MEDS: SODIUM CHLORIDE 0.9% 1,000 ML IV SCH (18:08)
[2018-07-30] MEDS: ZINC OXIDE 20% OINT 30GM TOP SCH (18:08)
[2018-07-30] MEDS: INSULIN LISPRO 100 UNITS/ML SUBCUT SCH (18:16)
[2018-07-30] MEDS: PIPERACILLIN/TAZ 2.25G PREMIX 50 ML IV SCH (19:10)
[2018-07-31] VITALS (11 sets, daily range): BP systolic 127–150; BP diastolic 53–96
[2018-07-31] MEDS: BLOOD SUGAR DIAGNOSTIC STRIP TEST SCH ×4 (00:01→17:44)
[2018-07-31] MEDS: INSULIN LISPRO 100 UNITS/ML SUBCUT SCH ×4 (00:02→17:44)
[2018-07-31] MEDS: PIPERACILLIN/TAZ 2.25G PREMIX 50 ML IV SCH ×3 (02:01→17:28)
[2018-07-31] MEDS: PANTOPRAZOLE SODIUM 40 MG/VIAL IV SCH (09:24)
[2018-07-31] MEDS: SODIUM CHLORIDE 0.9% 1,000 ML IV SCH ×2 (09:26→17:28)
[2018-07-31] MEDS: ZINC OXIDE 20% OINT 30GM TOP SCH ×2 (09:26→17:31)
[2018-07-31 10:21] LABS: BASOPHILS % 0.5 % (0.0-2.0); EOSINOPHILS % 1.5 % (0.0-5.0); HEMATOCRIT. 27.2 % (36.0-48.0); HEMOGLOBIN. 8.9 g/dL (12.0-16.0); LYMPHOCYTES % 7.3 % (20.0-50.0); MEAN CORPUSCULAR HEMOGLOBIN 28.5 pg (28.0-32.0); MEAN CORPUSCULAR VOLUME 87.3 fL (81.0-99.0); MEAN PLATELET VOLUME 9.3 fl (7.4-10.4); MONOCYTES % 6.4 % (2.0-8.0); NEUTROPHILS % 84.3 % (40.0-76.0); PLATELET 369 x1000/uL (130-400); RED BLOOD CELL COUNT 3.12 mill/uL (4.2-5.4)
[2018-07-31] MEDS ORDERED: TRAMADOL 50MG TABLET GT PRN (12:15)
[2018-07-31] MEDS ORDERED: CLONIDINE 0.1MG TABLET GT PRN (12:15)
[2018-07-31] MEDS ORDERED: ACETAMINOPHEN 650MG/20.3ML UDC GT PRN (12:15)
[2018-07-31] MEDS ORDERED: DOCUSATE SODIUM SUGAR FREE 100MG/10ML UDC GT PRN (12:45)
[2018-07-31] MEDS ORDERED: LORAZEPAM 1MG TABLET GT PRN (13:00)
[2018-07-31] MEDS: SODIUM HYPOCHLORITE 0.125% 473ML SOLUTION TOP SCH (13:31)
[2018-07-31] MEDS: LEVETIRACETAM 250MG TABLET GT SCH ×2 (15:59→22:54)
[2018-07-31] MEDS: CITALOPRAM HYDROBROMIDE 10MG TABLET GT SCH (15:59)
[2018-07-31] MEDS: FOLIC ACID 1MG TABLET GT SCH (15:59)
[2018-07-31] MEDS: LACTULOSE 20G/30ML UDC GT SCH (15:59)
[2018-07-31] MEDS: GABAPENTIN SOLN 50MG/1ML UDC GT SCH (19:00)
[2018-07-31] MEDS ORDERED: NON FORMULARY PATIENT HOME MED EA OP SCH (21:00)
[2018-07-31] MEDS: LATANOPROST 0.005% OPHTH DROPS 2.5ML EACHEYE SCH (22:54)
[2018-07-31] MEDS: ATORVASTATIN CALCIUM 40MG TABLET GT SCH (22:54)
[2018-08-01] VITALS (11 sets, daily range): BP systolic 114–154; BP diastolic 58–98
[2018-08-01] MEDS: PIPERACILLIN/TAZ 2.25G PREMIX 50 ML IV SCH ×3 (02:59→17:08)
[2018-08-01] MEDS: INSULIN LISPRO 100 UNITS/ML SUBCUT SCH ×5 (06:00→23:55)
[2018-08-01] MEDS: BLOOD SUGAR DIAGNOSTIC STRIP TEST SCH ×5 (06:17→23:55)
[2018-08-01 07:08] LABS: CHLORIDE 110 mEq/L (98-107)
[2018-08-01 07:13] LABS: PHOSPHORUS 3.2 mg/dL (2.5-4.9)
[2018-08-01 08:50] LABS: BASOPHILS % 0.7 % (0.0-2.0); EOSINOPHILS % 2.2 % (0.0-5.0); HEMATOCRIT. 24.6 % (36.0-48.0); HEMOGLOBIN. 7.9 g/dL (12.0-16.0); LYMPHOCYTES % 8.2 % (20.0-50.0); MEAN CORPUSCULAR HEMOGLOBIN 28.6 pg (28.0-32.0); MEAN CORPUSCULAR VOLUME 88.4 fL (81.0-99.0); MONOCYTES % 6.3 % (2.0-8.0); NEUTROPHILS % 82.6 % (40.0-76.0); RED BLOOD CELL COUNT 2.78 mill/uL (4.2-5.4); RED CELL DISTRIBUTION WIDTH 15.3 % (11.6-14.6)
[2018-08-01] MEDS ORDERED: NON FORMULARY PATIENT HOME MED EA GT SCH (09:00)
[2018-08-01] MEDS: CITALOPRAM HYDROBROMIDE 10MG TABLET GT SCH (09:32)
[2018-08-01] MEDS: PANTOPRAZOLE SODIUM 40 MG/VIAL IV SCH (09:32)
[2018-08-01] MEDS: LEVETIRACETAM 250MG TABLET GT SCH ×2 (09:33→20:22)
[2018-08-01] MEDS: FOLIC ACID 1MG TABLET GT SCH (09:33)
[2018-08-01] MEDS: LACTULOSE 20G/30ML UDC GT SCH (09:33)
[2018-08-01] MEDS: ZINC OXIDE 20% OINT 30GM TOP SCH ×2 (09:36→17:09)
[2018-08-01] MEDS: SODIUM HYPOCHLORITE 0.125% 473ML SOLUTION TOP SCH (09:36)
[2018-08-01] MEDS: GABAPENTIN SOLN 50MG/1ML UDC GT SCH ×2 (11:35→17:08)
[2018-08-01] MEDS ORDERED: VANCOMYCIN 1 G PREMIX 200 ML IV NR (13:00)
[2018-08-01 13:55] LABS: MEAN PLATELET VOLUME 9.7 fl (7.4-10.4); PLATELET 388 x1000/uL (130-400)
[2018-08-01] MEDS: ATORVASTATIN CALCIUM 40MG TABLET GT SCH (20:22)
[2018-08-01] MEDS: LATANOPROST 0.005% OPHTH DROPS 2.5ML EACHEYE SCH (20:22)
[2018-08-01] MEDS: SODIUM CHLORIDE 0.9% 1,000 ML IV SCH (20:23)
[2018-08-02] VITALS (12 sets, daily range): BP systolic 117–150; BP diastolic 60–85
[2018-08-02] MEDS: PIPERACILLIN/TAZ 2.25G PREMIX 50 ML IV SCH ×2 (01:39→09:59)
[2018-08-02] MEDS: BLOOD SUGAR DIAGNOSTIC STRIP TEST SCH ×3 (05:01→18:19)
[2018-08-02] MEDS: INSULIN LISPRO 100 UNITS/ML SUBCUT SCH ×3 (05:02→18:00)
[2018-08-02 07:02] LABS: BASOPHILS % 0.6 % (0.0-2.0); EOSINOPHILS % 3.7 % (0.0-5.0); HEMATOCRIT. 26.3 % (36.0-48.0); HEMOGLOBIN. 8.4 g/dL (12.0-16.0); LYMPHOCYTES % 11.9 % (20.0-50.0); MEAN CORPUSCULAR HEMOGLOBIN 28.6 pg (28.0-32.0); MEAN CORPUSCULAR VOLUME 89.1 fL (81.0-99.0); MEAN PLATELET VOLUME 8.8 fl (7.4-10.4); MONOCYTES % 7.7 % (2.0-8.0); NEUTROPHILS % 76.1 % (40.0-76.0); PLATELET 373 x1000/uL (130-400); RED BLOOD CELL COUNT 2.95 mill/uL (4.2-5.4); RED CELL DISTRIBUTION WIDTH 15.6 % (11.6-14.6)
[2018-08-02] MEDS: GABAPENTIN SOLN 50MG/1ML UDC GT SCH ×2 (09:00→18:19)
[2018-08-02] MEDS: LEVETIRACETAM 250MG TABLET GT SCH ×2 (09:49→20:44)
[2018-08-02] MEDS: PANTOPRAZOLE SODIUM 40 MG/VIAL IV SCH (09:49)
[2018-08-02] MEDS: CITALOPRAM HYDROBROMIDE 10MG TABLET GT SCH (09:59)
[2018-08-02] MEDS: SODIUM HYPOCHLORITE 0.125% 473ML SOLUTION TOP SCH (09:59)
[2018-08-02] MEDS: FOLIC ACID 1MG TABLET GT SCH (09:59)
[2018-08-02] MEDS: ZINC OXIDE 20% OINT 30GM TOP SCH ×2 (10:00→18:18)
[2018-08-02] MEDS: AMOXICILLIN 500 MG CAPSULE PO SCH ×2 (11:30→20:44)
[2018-08-02] MEDS: SODIUM CHLORIDE 0.9% 1,000 ML IV SCH (11:55)
[2018-08-02] MEDS: LATANOPROST 0.005% OPHTH DROPS 2.5ML EACHEYE SCH (20:44)
[2018-08-02] MEDS: ATORVASTATIN CALCIUM 40MG TABLET GT SCH (20:44)
[2018-08-03] VITALS (12 sets, daily range): BP systolic 120–148; BP diastolic 57–76
[2018-08-03] MEDS: BLOOD SUGAR DIAGNOSTIC STRIP TEST SCH ×4 (00:05→17:43)
[2018-08-03] MEDS: INSULIN LISPRO 100 UNITS/ML SUBCUT SCH ×4 (00:10→18:18)
[2018-08-03] MEDS: SODIUM CHLORIDE 0.9% 1,000 ML IV SCH ×2 (04:58→21:26)
[2018-08-03] MEDS ORDERED: LIDOCAINE HCL/EPINEPHRINE 1%-EPI 1:100,000 20 ML VIAL INFIL SCH (07:00)
[2018-08-03 07:04] LABS: BASOPHILS % 0.8 % (0.0-2.0); EOSINOPHILS % 3.2 % (0.0-5.0); HEMATOCRIT. 22.6 % (36.0-48.0); HEMOGLOBIN. 7.4 g/dL (12.0-16.0); LYMPHOCYTES % 11.5 % (20.0-50.0); MEAN CORPUSCULAR HEMOGLOBIN 28.6 pg (28.0-32.0); MEAN CORPUSCULAR VOLUME 87.7 fL (81.0-99.0); MEAN PLATELET VOLUME 8.5 fl (7.4-10.4); NEUTROPHILS % 76.5 % (40.0-76.0); PLATELET 338 x1000/uL (130-400); RED BLOOD CELL COUNT 2.57 mill/uL (4.2-5.4); RED CELL DISTRIBUTION WIDTH 15.5 % (11.6-14.6)
[2018-08-03] MEDS: CITALOPRAM HYDROBROMIDE 10MG TABLET GT SCH (08:57)
[2018-08-03] MEDS: FOLIC ACID 1MG TABLET GT SCH (08:57)
[2018-08-03] MEDS: PANTOPRAZOLE SODIUM 40 MG/VIAL IV SCH (08:57)
[2018-08-03] MEDS: GABAPENTIN SOLN 50MG/1ML UDC GT SCH ×2 (08:57→18:16)
[2018-08-03] MEDS: LEVETIRACETAM 250MG TABLET GT SCH ×2 (08:57→21:24)
[2018-08-03] MEDS: AMOXICILLIN 500 MG CAPSULE PO SCH ×2 (08:57→21:24)
[2018-08-03] MEDS: ZINC OXIDE 20% OINT 30GM TOP SCH ×2 (08:58→18:18)
[2018-08-03] MEDS: SODIUM HYPOCHLORITE 0.125% 473ML SOLUTION TOP SCH (08:59)
[2018-08-03] MEDS: ATORVASTATIN CALCIUM 40MG TABLET GT SCH (21:23)
[2018-08-03] MEDS: LATANOPROST 0.005% OPHTH DROPS 2.5ML EACHEYE SCH (21:23)
[2018-08-04] VITALS (12 sets, daily range): BP systolic 131–153; BP diastolic 55–72
[2018-08-04] MEDS: BLOOD SUGAR DIAGNOSTIC STRIP TEST SCH ×4 (00:15→17:29)
[2018-08-04] MEDS: INSULIN LISPRO 100 UNITS/ML SUBCUT SCH ×4 (00:26→17:44)
[2018-08-04] MEDS: LEVETIRACETAM 250MG TABLET GT SCH ×2 (09:10→22:05)
[2018-08-04] MEDS: PANTOPRAZOLE SODIUM 40 MG/VIAL IV SCH (09:10)
[2018-08-04] MEDS: GABAPENTIN SOLN 50MG/1ML UDC GT SCH ×2 (09:10→17:43)
[2018-08-04] MEDS: CITALOPRAM HYDROBROMIDE 10MG TABLET GT SCH (09:10)
[2018-08-04] MEDS: AMOXICILLIN 500 MG CAPSULE PO SCH ×2 (09:10→22:05)
[2018-08-04] MEDS: FOLIC ACID 1MG TABLET GT SCH (09:10)
[2018-08-04] MEDS: SODIUM HYPOCHLORITE 0.125% 473ML SOLUTION TOP SCH (09:19)
[2018-08-04] MEDS: ZINC OXIDE 20% OINT 30GM TOP SCH ×2 (09:19→17:43)
[2018-08-04] MEDS: SODIUM CHLORIDE 0.9% 1,000 ML IV SCH (18:55)
[2018-08-04] MEDS: ATORVASTATIN CALCIUM 40MG TABLET GT SCH (22:05)
[2018-08-04] MEDS: LATANOPROST 0.005% OPHTH DROPS 2.5ML EACHEYE SCH (22:05)
[2018-08-05] VITALS (13 sets, daily range): BP systolic 131–176; BP diastolic 60–88
[2018-08-05] MEDS: INSULIN LISPRO 100 UNITS/ML SUBCUT SCH ×5 (00:55→21:00)
[2018-08-05] MEDS: BLOOD SUGAR DIAGNOSTIC STRIP TEST SCH ×5 (06:00→21:05)
[2018-08-05] MEDS ORDERED: LIDOCAINE HCL/EPINEPHRINE 1%-EPI 1:100,000 20 ML VIAL INFIL NR (09:30)
[2018-08-05] MEDS: CITALOPRAM HYDROBROMIDE 10MG TABLET GT SCH (09:34)
[2018-08-05] MEDS: AMOXICILLIN 500 MG CAPSULE PO SCH ×2 (09:34→21:00)
[2018-08-05] MEDS: ZINC OXIDE 20% OINT 30GM TOP SCH ×2 (09:34→17:30)
[2018-08-05] MEDS: PANTOPRAZOLE SODIUM 40 MG/VIAL IV SCH (09:34)
[2018-08-05] MEDS: SODIUM HYPOCHLORITE 0.125% 473ML SOLUTION TOP SCH (09:34)
[2018-08-05] MEDS: FOLIC ACID 1MG TABLET GT SCH (09:34)
[2018-08-05] MEDS: GABAPENTIN SOLN 50MG/1ML UDC GT SCH ×2 (09:34→17:29)
[2018-08-05] MEDS: LEVETIRACETAM 250MG TABLET GT SCH ×2 (10:47→21:00)
[2018-08-05 15:47] LABS: BASOPHILS % 0.7 % (0.0-2.0); EOSINOPHILS % 3.8 % (0.0-5.0); HEMATOCRIT. 22.9 % (36.0-48.0); HEMOGLOBIN. 7.6 g/dL (12.0-16.0); LYMPHOCYTES % 15.6 % (20.0-50.0); MEAN CORPUSCULAR HEMOGLOBIN 29.2 pg (28.0-32.0); MEAN CORPUSCULAR VOLUME 88.4 fL (81.0-99.0); MEAN PLATELET VOLUME 8.3 fl (7.4-10.4); MONOCYTES % 8.7 % (2.0-8.0); NEUTROPHILS % 71.2 % (40.0-76.0); PLATELET 313 x1000/uL (130-400); RED BLOOD CELL COUNT 2.59 mill/uL (4.2-5.4); RED CELL DISTRIBUTION WIDTH 15.8 % (11.6-14.6)
[2018-08-05] MEDS ORDERED: HEPARIN SODIUM 1,000 UNIT/1ML VIAL IV NR (17:07)
[2018-08-05] MEDS: ATORVASTATIN CALCIUM 40MG TABLET GT SCH (21:00)
[2018-08-05] MEDS: LATANOPROST 0.005% OPHTH DROPS 2.5ML EACHEYE SCH (21:17)
[2018-08-05] MEDS: SODIUM CHLORIDE 0.9% 1,000 ML IV SCH (22:15)
[2018-08-06] VITALS (9 sets, daily range): BP systolic 135–156; BP diastolic 68–77
[2018-08-06] MEDS: BLOOD SUGAR DIAGNOSTIC STRIP TEST SCH ×2 (07:30→12:58)
[2018-08-06] MEDS: SODIUM HYPOCHLORITE 0.125% 473ML SOLUTION TOP SCH (09:00)
[2018-08-06] MEDS: ZINC OXIDE 20% OINT 30GM TOP SCH (09:00)
[2018-08-06] MEDS: LEVETIRACETAM 250MG TABLET GT SCH (09:18)
[2018-08-06] MEDS: PANTOPRAZOLE SODIUM 40 MG/VIAL IV SCH (09:18)
[2018-08-06] MEDS: AMOXICILLIN 500 MG CAPSULE PO SCH (09:18)
[2018-08-06] MEDS: CITALOPRAM HYDROBROMIDE 10MG TABLET GT SCH (09:18)
[2018-08-06] MEDS: FOLIC ACID 1MG TABLET GT SCH (09:18)
[2018-08-06] MEDS: GABAPENTIN SOLN 50MG/1ML UDC GT SCH (09:20)
[2018-08-06] MEDS: INSULIN LISPRO 100 UNITS/ML SUBCUT SCH ×2 (09:30→13:26)
[2018-08-07] MEDS ORDERED: EPOETIN ALFA 10000UNITS/ML VIAL SUBCUT SCH (21:00)
== END 2018-08-06 18:28 | DRG 710 ==
LOC: ER 09:13 → ENRESERV 11:47 → 5EST 12:17 → EDBEDREQTM 12:24 → EDBEDREQ 12:24
PROVIDERS: ADMIT Internal Medicine; ATTEND Internal Medicine
PROC: 5A1D70Z Performance of Urinary Filtration, Intermittent, Less than 6 Hours Per Day (ICD-10-PCS; 2018-07-30)
PROC: 30233N1 Transfusion of Nonautologous Red Blood Cells into Peripheral Vein, Percutaneous Approach (ICD-10-PCS; 2018-07-30)
PROC: 5A1D70Z Performance of Urinary Filtration, Intermittent, Less than 6 Hours Per Day (ICD-10-PCS; 2018-08-01)
PROC: 0KBP0ZZ Excision of Left Hip Muscle, Open Approach (ICD-10-PCS; principal; 2018-08-03)
PROC: 0KBN0ZZ Excision of Right Hip Muscle, Open Approach (ICD-10-PCS; 2018-08-03)
PROC: 5A1D70Z Performance of Urinary Filtration, Intermittent, Less than 6 Hours Per Day (ICD-10-PCS; 2018-08-05)
PROC: 5A1D70Z Performance of Urinary Filtration, Intermittent, Less than 6 Hours Per Day (ICD-10-PCS; 2018-08-06)
DX: A41.9 Sepsis, unspecified organism (principal); I21.4 Non-ST elevation (NSTEMI) myocardial infarction; E43 Unspecified severe protein-calorie malnutrition; G93.40 Encephalopathy, unspecified; L89.154 Pressure ulcer of sacral region, stage 4; E11.21 Type 2 diabetes mellitus with diabetic nephropathy; C50.919 Malignant neoplasm of unspecified site of unspecified female breast; E11.22 Type 2 diabetes mellitus with diabetic chronic kidney disease; R13.10 Dysphagia, unspecified; E11.65 Type 2 diabetes mellitus with hyperglycemia; D64.9 Anemia, unspecified; I12.0 Hypertensive chronic kidney disease with stage 5 chronic kidney disease or end stage renal disease; N18.6 End stage renal disease; E87.1 Hypo-osmolality and hyponatremia; R65.20 Severe sepsis without septic shock; Z68.23 Body mass index [BMI] 23.0-23.9, adult; E78.00 Pure hypercholesterolemia, unspecified; E78.5 Hyperlipidemia, unspecified; E87.8 Other disorders of electrolyte and fluid balance, not elsewhere classified; F03.90 Unspecified dementia, unspecified severity, without behavioral disturbance, psychotic disturbance, mood disturbance, and anxiety; F09 Unspecified mental disorder due to known physiological condition; F20.9 Schizophrenia, unspecified; F32.9 Major depressive disorder, single episode, unspecified; G40.909 Epilepsy, unspecified, not intractable, without status epilepticus; G89.29 Other chronic pain; I49.3 Ventricular premature depolarization; M21.171 Varus deformity, not elsewhere classified, right ankle; R47.01 Aphasia; R64 Cachexia; F41.9 Anxiety disorder, unspecified; R74.0 Nonspecific elevation of levels of transaminase and lactic acid dehydrogenase [LDH]; L89.899 Pressure ulcer of other site, unspecified stage; B95.2 Enterococcus as the cause of diseases classified elsewhere; Z85.3 Personal history of malignant neoplasm of breast; Z86.73 Personal history of transient ischemic attack (TIA), and cerebral infarction without residual deficits; Z92.21 Personal history of antineoplastic chemotherapy; Z93.1 Gastrostomy status; Z99.2 Dependence on renal dialysis; Z74.01 Bed confinement status; Z88.8 Allergy status to other drugs, medicaments and biological substances; N39.0 Urinary tract infection, site not specified
CPT/HCPCS: 36415; 71045; 76700; 80048; 80202; 82140; 82270; 82550; 82553; 82728; 82962; 83540; 83550; 83605; 83735; 84100; 84134; 84484; 86850; 86900; 86920; 87070; 87077; 87186; 93005; 93306; 93970; 96365; 99291; A6261; C1893; C9113; J1644; J1815; J2543; J3370; J3490; J7030; J7050; P9016

== ENCOUNTER 2018-08-19 15:07 | Inpatient (IN) | payer OTHER, MEDICAID ==
[~2018-08-19] VITALS: Ht 160 cm; Wt 58.1 kg
[2018-08-19] MEDS ORDERED: PIPERACILLIN/TAZ 3.375G PREMIX 50 ML IV ONE (16:00)
[2018-08-19] MEDS ORDERED: VANCOMYCIN 1 G PREMIX 200 ML IV ONE (16:00)
[2018-08-19] MEDS ORDERED: ACETAMINOPHEN 650MG SUPP PR STA (16:00)
[2018-08-19] MEDS ORDERED: SODIUM CHLORIDE 0.9% 1000ML BAG (SEPSIS BOLUS) IV ONE (16:00)
[2018-08-19 16:56] LABS: BASOPHILS % 0.3 % (0.0-2.0); EOSINOPHILS % 0.7 % (0.0-5.0); HEMATOCRIT. 24.1 % (36.0-48.0); HEMOGLOBIN. 7.7 g/dL (12.0-16.0); LYMPHOCYTES % 12.7 % (20.0-50.0); MEAN CORPUSCULAR VOLUME 87.4 fL (81.0-99.0); MEAN PLATELET VOLUME 8.7 fl (7.4-10.4); MONOCYTES % 9.8 % (2.0-8.0); NEUTROPHILS % 76.5 % (40.0-76.0); PLATELET 351 x1000/uL (130-400); RED BLOOD CELL COUNT 2.76 mill/uL (4.2-5.4); RED CELL DISTRIBUTION WIDTH 16.3 % (11.6-14.6)
[2018-08-19 17:01] LABS: CHLORIDE 96 mEq/L (98-107)
[2018-08-19 17:02] LABS: INR 1.1; PROTHROMBIN TIME 10.8 sec (9.1-11.1)
[2018-08-19 18:12] LABS: CLARITY URINE CLEAR (CLEAR); COLOR URINE YELLOW (YELLOW); KETONES URINE NEGATIVE (NEGATIVE); LEUKOCYTE ESTERASE URINE TRACE (NEGATIVE); NITRITE URINE NEGATIVE (NEGATIVE); OCCULT BLOOD URINE NEGATIVE (NEGATIVE); PH URINE 8.5 (4.5-8.0); PROTEIN URINE 3+ (NEGATIVE); SPECIFIC GRAVITY URINE 1.019 (1.005-1.030)
[2018-08-19 19:30] VITALS: BP 118/57
[2018-08-19 20:00] VITALS: BP 118/57
[2018-08-19] MEDS ORDERED: ACETAMINOPHEN 325MG TABLET PO PRN (20:00)
[2018-08-19 22:00] VITALS: BP 129/74
[2018-08-19] MEDS ORDERED: ESCI5TAB GT (22:38)
[2018-08-19] MEDS ORDERED: ASCO-339 GT (22:40)
[2018-08-19] MEDS ORDERED: ASPI-1159 GT (22:41)
[2018-08-19] MEDS ORDERED: BIMA2.5D4 EACHEYE (23:16)
[2018-08-19] MEDS ORDERED: MEDICATION NOT ON FORMULARY EA (Lactulose 30 ML) GT SCH (23:30)
[2018-08-19] MEDS ORDERED: MEDICATION NOT ON FORMULARY EA (Tramadol Hcl 50 MG) GT PRN (23:30)
[2018-08-19] MEDS ORDERED: CLONIDINE 0.1MG TABLET GT PRN (23:30)
[2018-08-19] MEDS ORDERED: LEVETIRACETAM 250MG TABLET GT SCH (23:30)
[2018-08-19] MEDS ORDERED: MEDICATION NOT ON FORMULARY EA (Acetaminophen (Tylenol) 650 MG) GT PRN (23:30)
[2018-08-19] MEDS ORDERED: MEDICATION NOT ON FORMULARY EA (Docusate Sodium 1 CAP) GT PRN (23:30)
[2018-08-19] MEDS ORDERED: IPRATROPIUM/ALBUTEROL 0.5-3(2.5)MG/3ML NEB HHN PRN (23:30)
[2018-08-19] MEDS ORDERED: MEDICATION NOT ON FORMULARY EA (Gabapentin 1 CAP) GT SCH (23:30)
[2018-08-19] MEDS ORDERED: MEDICATION NOT ON FORMULARY EA (Bimatoprost (Lumigan) 1 DROP) EACHEYE SCH (23:30)
[2018-08-19] MEDS ORDERED: DEXTROSE 50% WATER 50ML SYRINGE IV PRN (23:45)
[2018-08-19] MEDS: INSULIN LISPRO 100 UNITS/ML SUBCUT SCH (23:45)
[2018-08-19] MEDS ORDERED: DOCUSATE SODIUM SUGAR FREE 100MG/10ML UDC GT PRN (23:45)
[2018-08-19] MEDS ORDERED: ACETAMINOPHEN 650MG/20.3ML UDC GT PRN (23:45)
[2018-08-19] MEDS ORDERED: TRAMADOL 50MG TABLET GT PRN (23:45)
[2018-08-20] VITALS (21 sets, daily range): BP systolic 91–164; BP diastolic 37–75
[2018-08-20] MEDS: PIPERACILLIN/TAZ 2.25G PREMIX 50 ML IV SCH ×3 (00:23→16:33)
[2018-08-20] MEDS: BLOOD SUGAR DIAGNOSTIC STRIP TEST SCH (00:25)
[2018-08-20] MEDS: LACTULOSE 20G/30ML UDC GT SCH ×3 (06:17→21:43)
[2018-08-20] MEDS ORDERED: BLOOD SUGAR DIAGNOSTIC STRIP TEST SCH (06:50)
[2018-08-20 07:58] LABS: BASOPHILS % 0.9 % (0.0-2.0); EOSINOPHILS % 2.7 % (0.0-5.0); LYMPHOCYTES % 14.1 % (20.0-50.0); MEAN CORPUSCULAR HEMOGLOBIN 27.8 pg (28.0-32.0); MEAN CORPUSCULAR VOLUME 87.6 fL (81.0-99.0); MEAN PLATELET VOLUME 9.5 fl (7.4-10.4); MONOCYTES % 7.3 % (2.0-8.0); PLATELET 297 x1000/uL (130-400); RED BLOOD CELL COUNT 2.23 mill/uL (4.2-5.4); RED CELL DISTRIBUTION WIDTH 16.2 % (11.6-14.6)
[2018-08-20 08:06] LABS: HEMOGLOBIN. 6.2 g/dL (12.0-16.0)
[2018-08-20 08:07] LABS: HEMATOCRIT. 19.5 % (36.0-48.0)
[2018-08-20] MEDS: ASCORBIC ACID 500 MG TABLET GT SCH (08:48)
[2018-08-20] MEDS: LEVETIRACETAM 500MG/5ML CUP PO SCH ×2 (08:48→21:56)
[2018-08-20] MEDS: CITALOPRAM HYDROBROMIDE 10MG TABLET GT SCH (08:48)
[2018-08-20] MEDS: ASPIRIN 81MG TABLET GT SCH (08:49)
[2018-08-20] MEDS: INSULIN LISPRO 100 UNITS/ML SUBCUT SCH ×4 (08:50→21:59)
[2018-08-20] MEDS ORDERED: MEDICATION NOT ON FORMULARY EA (Ascorbate Calcium (Vitamin C) 500 MG) GT SCH (09:00)
[2018-08-20] MEDS ORDERED: MEDICATION NOT ON FORMULARY EA (Folic Acid 1 TAB) GT SCH (09:00)
[2018-08-20] MEDS ORDERED: ESCITALOPRAM OXALATE 5 MG GT SCH (09:00)
[2018-08-20] MEDS ORDERED: PROTEIN HYDROLYS GT SCH (09:00)
[2018-08-20] MEDS ORDERED: AMINO ACIDS GT SCH (09:00)
[2018-08-20] MEDS: GABAPENTIN SOLN 50MG/1ML UDC GT SCH ×2 (09:03→18:00)
[2018-08-20] MEDS: FOLIC ACID 1MG TABLET GT SCH (16:34)
[2018-08-20] MEDS: SODIUM HYPOCHLORITE 0.125% 473ML SOLUTION TOP SCH (18:00)
[2018-08-20] MEDS: ATORVASTATIN CALCIUM 40MG TABLET GT SCH (21:56)
[2018-08-20] MEDS: LATANOPROST 0.005% OPHTH DROPS 2.5ML EACHEYE SCH (21:59)
[2018-08-21] VITALS (12 sets, daily range): BP systolic 95–138; BP diastolic 41–101
[2018-08-21] MEDS: PIPERACILLIN/TAZ 2.25G PREMIX 50 ML IV SCH ×2 (00:47→05:24)
[2018-08-21 03:34] LABS: BASOPHILS % 1.1 % (0.0-2.0); EOSINOPHILS % 4.7 % (0.0-5.0); HEMATOCRIT. 23.5 % (36.0-48.0); HEMOGLOBIN. 7.6 g/dL (12.0-16.0); LYMPHOCYTES % 14.3 % (20.0-50.0); MEAN CORPUSCULAR HEMOGLOBIN 28.3 pg (28.0-32.0); MEAN PLATELET VOLUME 9.1 fl (7.4-10.4); MONOCYTES % 9.3 % (2.0-8.0); NEUTROPHILS % 70.6 % (40.0-76.0); PLATELET 341 x1000/uL (130-400); RED BLOOD CELL COUNT 2.67 mill/uL (4.2-5.4); RED CELL DISTRIBUTION WIDTH 16.2 % (11.6-14.6)
[2018-08-21 03:43] LABS: HEMATOCRIT 24.5 % (36.0-48.0); HEMOGLOBIN 7.9 g/dL (12.0-16.0)
[2018-08-21] MEDS: BLOOD SUGAR DIAGNOSTIC STRIP TEST SCH ×4 (05:24→20:36)
[2018-08-21] MEDS: LACTULOSE 20G/30ML UDC GT SCH ×3 (05:24→21:30)
[2018-08-21] MEDS: INSULIN LISPRO 100 UNITS/ML SUBCUT SCH ×4 (05:30→21:29)
[2018-08-21] MEDS: SODIUM HYPOCHLORITE 0.125% 473ML SOLUTION TOP SCH (09:03)
[2018-08-21] MEDS: LEVETIRACETAM 500MG/5ML CUP PO SCH ×2 (09:20→20:35)
[2018-08-21] MEDS: FOLIC ACID 1MG TABLET GT SCH (09:21)
[2018-08-21] MEDS: CITALOPRAM HYDROBROMIDE 10MG TABLET GT SCH (09:21)
[2018-08-21] MEDS: ASCORBIC ACID 500 MG TABLET GT SCH (09:21)
[2018-08-21] MEDS: ASPIRIN 81MG TABLET GT SCH (09:21)
[2018-08-21] MEDS: GABAPENTIN SOLN 50MG/1ML UDC GT SCH ×2 (09:22→18:34)
[2018-08-21] MEDS ORDERED: CEFTRIAXONE 1,000 MG in DEXTROSE 5% WATER 50 ML IV SCH (11:15)
[2018-08-21] MEDS: CEFTRIAXONE 1 G PREMIX 50 ML IV SCH (12:39)
[2018-08-21] MEDS: ATORVASTATIN CALCIUM 40MG TABLET GT SCH (20:36)
[2018-08-21] MEDS: LATANOPROST 0.005% OPHTH DROPS 2.5ML EACHEYE SCH (20:37)
[2018-08-21] MEDS ORDERED: EPOETIN ALFA 4000UNITS/ML VIAL SUBCUT SCH (21:00)
[2018-08-22] VITALS (12 sets, daily range): BP systolic 95–144; BP diastolic 49–84
[2018-08-22] MEDS: LACTULOSE 20G/30ML UDC GT SCH ×3 (05:48→21:32)
[2018-08-22] MEDS: BLOOD SUGAR DIAGNOSTIC STRIP TEST SCH ×4 (06:20→21:24)
[2018-08-22] MEDS: INSULIN LISPRO 100 UNITS/ML SUBCUT SCH ×4 (06:26→21:00)
[2018-08-22 07:05] LABS: BASOPHILS % 0.6 % (0.0-2.0); EOSINOPHILS % 3.2 % (0.0-5.0); HEMATOCRIT. 23.7 % (36.0-48.0); HEMOGLOBIN. 7.7 g/dL (12.0-16.0); LYMPHOCYTES % 14.6 % (20.0-50.0); MEAN CORPUSCULAR HEMOGLOBIN 28.6 pg (28.0-32.0); MEAN CORPUSCULAR VOLUME 87.4 fL (81.0-99.0); MONOCYTES % 6.8 % (2.0-8.0); NEUTROPHILS % 74.8 % (40.0-76.0); PLATELET 308 x1000/uL (130-400); RED BLOOD CELL COUNT 2.71 mill/uL (4.2-5.4); RED CELL DISTRIBUTION WIDTH 16.3 % (11.6-14.6)
[2018-08-22] MEDS: SODIUM HYPOCHLORITE 0.125% 473ML SOLUTION TOP SCH (08:38)
[2018-08-22] MEDS: FOLIC ACID 1MG TABLET GT SCH (08:48)
[2018-08-22] MEDS: CITALOPRAM HYDROBROMIDE 10MG TABLET GT SCH (08:48)
[2018-08-22] MEDS: ASCORBIC ACID 500 MG TABLET GT SCH (08:48)
[2018-08-22] MEDS: ASPIRIN 81MG TABLET GT SCH (08:48)
[2018-08-22] MEDS: LEVETIRACETAM 500MG/5ML CUP PO SCH ×2 (08:49→21:32)
[2018-08-22] MEDS: GABAPENTIN SOLN 50MG/1ML UDC GT SCH ×2 (08:53→16:34)
[2018-08-22] MEDS ORDERED: LIDOCAINE HCL/EPINEPHRINE 1%-EPI 1:100,000 20 ML VIAL INFIL NR (09:00)
[2018-08-22] MEDS ORDERED: HYDROMORPHONE HCL/PF 2MG/ML CPJ IV NR (09:13)
[2018-08-22] MEDS: CEFTRIAXONE 1 G PREMIX 50 ML IV SCH (12:18)
[2018-08-22] MEDS ORDERED: HYDROMORPHONE HCL/PF 2MG/ML CPJ IV PRN (13:00)
[2018-08-22] MEDS: ATORVASTATIN CALCIUM 40MG TABLET GT SCH (21:32)
[2018-08-22] MEDS: LATANOPROST 0.005% OPHTH DROPS 2.5ML EACHEYE SCH (21:33)
[2018-08-23] VITALS (8 sets, daily range): BP systolic 101–130; BP diastolic 56–81
[2018-08-23] MEDS: LACTULOSE 20G/30ML UDC GT SCH (05:08)
[2018-08-23] MEDS: INSULIN LISPRO 100 UNITS/ML SUBCUT SCH ×2 (05:44→11:34)
[2018-08-23] MEDS: BLOOD SUGAR DIAGNOSTIC STRIP TEST SCH ×2 (05:44→11:13)
[2018-08-23 06:30] LABS: BASOPHILS % 0.6 % (0.0-2.0); EOSINOPHILS % 2.4 % (0.0-5.0); HEMATOCRIT. 26.3 % (36.0-48.0); HEMOGLOBIN. 8.4 g/dL (12.0-16.0); LYMPHOCYTES % 13.2 % (20.0-50.0); MEAN CORPUSCULAR HEMOGLOBIN 28.4 pg (28.0-32.0); MEAN CORPUSCULAR VOLUME 88.5 fL (81.0-99.0); MEAN PLATELET VOLUME 8.8 fl (7.4-10.4); MONOCYTES % 7.4 % (2.0-8.0); NEUTROPHILS % 76.4 % (40.0-76.0); PLATELET 347 x1000/uL (130-400); RED BLOOD CELL COUNT 2.97 mill/uL (4.2-5.4); RED CELL DISTRIBUTION WIDTH 16.5 % (11.6-14.6)
[2018-08-23] MEDS: LEVETIRACETAM 500MG/5ML CUP PO SCH (08:52)
[2018-08-23] MEDS: GABAPENTIN SOLN 50MG/1ML UDC GT SCH (08:53)
[2018-08-23] MEDS: SODIUM HYPOCHLORITE 0.125% 473ML SOLUTION TOP SCH (08:53)
[2018-08-23] MEDS: FOLIC ACID 1MG TABLET GT SCH (08:53)
[2018-08-23] MEDS: ASPIRIN 81MG TABLET GT SCH (08:53)
[2018-08-23] MEDS: ASCORBIC ACID 500 MG TABLET GT SCH (08:53)
[2018-08-23] MEDS: CITALOPRAM HYDROBROMIDE 10MG TABLET GT SCH (08:53)
[2018-08-23] MEDS ORDERED: EPOETIN ALFA 4000UNITS/ML VIAL SUBCUT SCH (21:00)
== END 2018-08-23 13:22 | DRG 710 ==
LOC: ER 15:07 → 3WST 18:11 → EDBEDREQTM 18:14 → EDBEDREQ 18:14 → ENRESERV 18:29
PROVIDERS: ADMIT Internal Medicine; ATTEND Internal Medicine
PROC: 30233N1 Transfusion of Nonautologous Red Blood Cells into Peripheral Vein, Percutaneous Approach (ICD-10-PCS; 2018-08-20)
PROC: 5A1D70Z Performance of Urinary Filtration, Intermittent, Less than 6 Hours Per Day (ICD-10-PCS; 2018-08-21)
PROC: 0KBP0ZZ Excision of Left Hip Muscle, Open Approach (ICD-10-PCS; principal; 2018-08-22)
PROC: 0KBN0ZZ Excision of Right Hip Muscle, Open Approach (ICD-10-PCS; 2018-08-22)
DX: A41.9 Sepsis, unspecified organism (principal); E43 Unspecified severe protein-calorie malnutrition; G93.40 Encephalopathy, unspecified; L89.154 Pressure ulcer of sacral region, stage 4; E11.22 Type 2 diabetes mellitus with diabetic chronic kidney disease; R13.10 Dysphagia, unspecified; G93.89 Other specified disorders of brain; E87.8 Other disorders of electrolyte and fluid balance, not elsewhere classified; F03.90 Unspecified dementia, unspecified severity, without behavioral disturbance, psychotic disturbance, mood disturbance, and anxiety; F20.9 Schizophrenia, unspecified; E78.00 Pure hypercholesterolemia, unspecified; I12.0 Hypertensive chronic kidney disease with stage 5 chronic kidney disease or end stage renal disease; F32.9 Major depressive disorder, single episode, unspecified; F41.9 Anxiety disorder, unspecified; G40.909 Epilepsy, unspecified, not intractable, without status epilepticus; M21.171 Varus deformity, not elsewhere classified, right ankle; N18.6 End stage renal disease; D64.9 Anemia, unspecified; N39.0 Urinary tract infection, site not specified; E78.5 Hyperlipidemia, unspecified; E87.1 Hypo-osmolality and hyponatremia; Z85.3 Personal history of malignant neoplasm of breast; Z86.73 Personal history of transient ischemic attack (TIA), and cerebral infarction without residual deficits; Z99.2 Dependence on renal dialysis; Z93.1 Gastrostomy status; Z68.22 Body mass index [BMI] 22.0-22.9, adult
CPT/HCPCS: 36415; 71045; 80048; 80202; 82140; 82962; 83605; 83880; 84134; 84145; 84484; 85014; 85018; 86850; 86900; 86920; 87070; 87075; 87077; 87186; 93005; 96361; 96365; 96368; 99291; J0696; J0885; J1170; J1815; J2543; J3370; J3490; J7030; J7050; P9016